=== PATIENT | female | born 1950 | race Caucasian/White ===

== ENCOUNTER 2019-07-07 10:56 | Emergency (ER) | payer OTHER, MEDICARE, SELFPAY ==
[2019-07-07] VITALS (8 sets, daily range): BP systolic 131–152; BP diastolic 75–92; PULSE 78–113; RESP 16–18; TEMP 36.6; O2SAT 98–100
--- NOTE | ~2019-07-07 | CT_ITS ---
EXAMINATION: CT brain wo con DATE: 07/07/2019 11:35 INDICATION: Fall. History of transient ischemic attack. TECHNIQUE: Computed tomography (CT) of the head was performed without intravenous contrast. The mA wa s adjusted according to patient size. Iterative reconstruction technique was employed. Exam dose: 60 5.33 mGy-cm total exam DLP. COMPARISON: None FINDINGS: There is prominent patchy diminished attenuation of the subcortical and periventricular cer ebral white matter, nonspecific, likely due to chronic small vessel ischemic change. There are bilate ral carotid siphon and supraclinoid internal carotid artery calcifications. No intracranial mass lesion or hemorrhage or evidence of cerebrovascular accident is detected. There is no midline shift or mass effect. Moderate cerebral and cerebellar volume loss. There are bilateral basal ganglia calcifications. Chronic right basal ganglia lacunar infarct. No significant abnormality of the orbits. No subdural or epidural hematoma is detected. The included paranasal sinuses and mastoid air cells are normally developed and aerated. No fracture or bone destruction of the cranial vault. IMPRESSION: Cerebral atherosclerosis and chronic small vessel ischemic changes of the cerebral white matter Reviewed, dictated and finalized at [facility]. Reviewed, dictated and finalized at [facility]. 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
--- NOTE | 2019-07-07 11:05 | ECG_ITS ---
Measurements Intervals [place] Rate: 106 P: 50 [place]: 161 QRS: 28 QRSD: 84 T: 30 QT: 322 QTc: 429 Interpretive Statements SINUS TACHYCARDIA BASELINE ARTIFACT- I, II, III, AVR, AVL, AVF, V1-V6 ABNORMAL ECG Electronically Signed On 07-07-2019 13:37:09 RECORDS SPECIALIST by Igor Mora D.O.
--- NOTE | 2019-07-07 11:09 | ED.SYNCOPE ---
HPI - Syncope General Chief Complaint: Syncope Stated Complaint: passed out twice Time Seen by Provider: 07/07/19 11:07 Source: patient Mode of arrival: ambulatory Limitations: no limitations History of Present Illness HPI narrative: A 69 y/o female presents to the ED with c/o syncope. Pt states that she was at work today and woke up on the floor twice. She notes that she was hot, lightheaded, and nauseous before the syncopal episodes. Pt denies SOB, CP, ABD pain, dysuria, and vomiting. She adds that she has constant nausea and diarrhea due to her Trulicity medication. Pt has a PMHx of syncope and diabetes. She states that she checks her blood sugar twice daily and notes that it was 125 this morning before work. Pt reports that her blood sugar has been intermittently high the last few weeks and her levels have been in the 190's. complaint: loss of consciousness Onset (ago): hour(s) (Today) Prodromal symptoms: lightheaded, nausea/vomiting and other (Hot) History: previous syncopal episode and other (Diabetes) Related Data Home Medications Medication Instructions Recorded Confirmed aspirin 81 mg PO DAILY 07/07/19 bupropion HCl 150 mg PO QAM 07/07/19 citalopram 20 mg PO DAILY 07/07/19 gabapentin 300 mg PO BID 07/07/19 levothyroxine 75 mcg PO DAILY 07/07/19 lisinopril 5 mg PO BID 07/07/19 metformin 500 mg PO BID 07/07/19 omeprazole 20 mg PO BID 07/07/19 simvastatin 40 mg PO DAILY 07/07/19 turmeric mg PO 07/07/19 Allergies Allergy/AdvReac Type Severity Reaction Status Date / Time No Known Allergies Allergy Unverified 11/13/15 21:21 Review of Systems Review of Systems: All systems reviewed & are unremarkable except as noted in HPI and below Constitutional: Constitutional: Reports other (Hot) Cardiovascular: Cardiovascular: Denies chest pain and Reports lightheadedness Respiratory: Respiratory: Denies dyspnea Gastrointestinal: Gastrointestinal: Denies abdominal pain, Reports nausea and Denies vomiting Genitourinary: Genitourinary: Denies dysuria Neurologic: Reports other (Syncope) [facility] Past Medical History Medical History (Updated 07/07/19 @ 14:03 by Kalyan Reynolds MD) Cataracts, bilateral Diabetes HTN (hypertension) Hyperlipidemia TIA (transient ischemic attack) Surgical History Surgical History (Updated 07/07/19 @ 11:39 by Yeni Argueta) History of cholecystectomy History of laminectomy History of partial hysterectomy History of uterine suspension procedure Social History Social History (Updated 07/07/19 @ 11:39 by Yeni Argueta) Smoking status: Never smoker Gender identity (if verbalized by the patient): Female Exam Const: General: healthy appearing and no acute distress Nutritional Appearance: well nourished HENMT: Mouth: Yes lip normal and Yes dry mucous membranes Eyes: Conjunctivae: conjunctivae normal Pupils: Equal, round and reactive pupils present Resp: Effort & Inspection: normal respiratory effort Auscultation: clear to auscultation bilaterally Cardio: Rate: tachycardic Rhythm: regular rhythm Heart sounds: no murmurs GI: GI Palp: Yes Soft to palpation and No Tenderness to palpation present (GI) Auscultation: normal bowel sounds Back/Spine/Pelvis: Back: other (Full ROM) Skin: General skin exam: normal color, dry skin and other (Warm) Neuro: General: patient oriented x3 (Alert) Speech: normal speech Extrem: General: full ROM Psych: Mental Status: mental status grossly normal Affect: normal affect Course Vital Signs Vital signs: Vital Signs Temperature 36.6 C 07/07/19 11:01 Pulse Rate 107 H 07/07/19 11:01 Respiratory Rate 18 07/07/19 11:01 Blood Pressure 152/92 H 07/07/19 11:01 Pulse Oximetry 100 07/07/19 11:01 Temperature 36.6 C 07/07/19 11:01 Pulse Rate 78 07/07/19 13:47 Respiratory Rate 18 07/07/19 13:47 Blood Pressure 145/81 H 07/07/19 13:47 Pulse Oximetry 100 07/07/19 13:47 MDM - Syncope
[2019-07-07] MEDS: SODIUM CHLORIDE 0.9% IV 1,000 ML 999 ML IV CONT ×2 (11:30→12:20)
--- NOTE | 2019-07-07 11:30 | PC.NURSE ---
Pt taken to CT in stretcher per tech ayala at this time.
[2019-07-07 11:41] LABS: Basophils Absolute Auto 0.1 K/mm3 (0.0-0.1); Eosinophils Absolute Auto 0.1 K/mm3 (0-0.3); Eosinophils Percent Auto 1.1 % (0-4.4); Hematocrit 41.5 % (37.0-47.0); Hemoglobin 13.3 g/dL (12.0-15.0); Immature Granulocyte Absolute 0.02 K/mm3 (0.00-0.031); Immature Granulocyte Percent A 0.2 % (0-0.5); Lymphocytes Absolute Auto 0.82 K/mm3 (0.9-3.2); Lymphocytes Percent Auto 9.2 % (18.3-44.2); Mean Corpuscular Hemoglobin 29.5 pg (26-34); Mean Platelet Volume 11.3 fl (7.4-10.4); Monocytes Absolute Auto 0.5 K/mm3 (0.1-0.6); Monocytes Percent Auto 5.6 % (2.6-8.5); Neutrophils Absolute Auto 7.4 K/mm3 (1.3-6.7); Neutrophils Percent Auto 82.9 % (45.5-73.1); Platelet Count Result 270 k/mm3 (150-375); Red Blood Count 4.51 M/mm3 (4.2-5.4); Red Cell Distribution Width 13.4 % (11.5-14.5); White Blood Count 8.9 K/mm3 (4.5-10.0)
[2019-07-07 11:50] LABS: Blood Urea Nitrogen 13 mg/dL (7-17); Calcium 9.3 mg/dL (8.4-10.2); Carbon Dioxide 24 mmol/L (22-30); Chloride 103 mmol/L (98-107); Estimated CRCL calculation 38 ml/min; Estimated Glomerular Filt Rate 44; Glucose 187 mg/dL (65-105); Magnesium 1.6 mg/dL (1.6-2.3); Potassium 4.2 mmol/L (3.4-5.0); Sodium 139 mmol/L (137-145)
--- NOTE | 2019-07-07 12:01 | PC.NURSE ---
PT REFUSES TO USE WHEELCHAIR TO GO TO BATHROOM. RN AMBULATES PT TO BATHROOM, PT UNSTEADY ON FEET.
--- NOTE | 2019-07-07 12:02 | PC.NURSE ---
PT IN BATHROOM ATTEMPTING URINE SAMPLE. PT REFUSING WHEELCHAIR, BEDPAIN, OR STRAIGHT CATH, STATES SHE WILL USE THE TOILET.
--- NOTE | 2019-07-07 12:19 | PC.NURSE ---
RN WITH PT AT THIS TIME, AMBULATES BACK TO ROOM 12, NO URINE WAS OBTAINED. PT HAS AGREED TO STRAIGHT CATH.
[2019-07-07 12:41] LABS: Add Urine Microscopic? NO; Appearance Urine Clear (Clear); Bilirubin Urine Negative (Negative); Blood Urine Negative (Negative); Color Urine Yellow (Yellow); Glucose Urine UA Negative (Negative); Ketones Urine Negative (Negative); Leukocyte Esterase Ur Negative LEU/UL (Negative); Nitrate Urine Negative (Negative); Protein Urine Negative (Negative); Specific Grav Ur 1.011 (1.001-1.035); Urobilinogen Urine Negative mg/dL (<2.0)
--- NOTE | 2019-07-07 13:53 | PC.NURSE ---
PT AMBULATED TO BATHROOM WITHOUT ASSISTANCE. PT STATED SHE DID NOT FEEL DIZZY.
--- NOTE | 2019-07-15 09:01 | PC.NURSE ---
LATE ENTRY This note is being entered to document information to the patient's record. The following information was omitted on [07/07/2019], by [ALLYSON]. BOTH BAGS OF NS COMPLETED AT 1220.
== END 2019-07-07 14:44 | disposition home or self-care (01) ==
PROVIDERS: Emergency Provider Emergency Medicine; PCP Internal Medicine
DX: R55 Syncope and collapse (principal); E11.9 Type 2 diabetes mellitus without complications; I10 Essential (primary) hypertension; E78.5 Hyperlipidemia, unspecified; Z86.73 Personal history of transient ischemic attack (TIA), and cerebral infarction without residual deficits; H26.9 Unspecified cataract; Z79.82 Long term (current) use of aspirin
CPT/HCPCS: 36415; 51701; 70450; 80048; 81003; 83735; 85025; 93005; 96360; 99284; J7030

== ENCOUNTER 2022-10-29 17:00 | Emergency (ER) | payer OTHER, MEDICARE, SELFPAY ==
--- NOTE | ~2022-10-29 | XR_ITS ---
EXAMINATION: XR chest 2V Exam Date/Time: 10/29/2022 18:15 CDT HISTORY: Dizziness, left arm numbness. Hx htn Comparison: None. RESULT: Lines, tubes, and devices: Coronary artery stents. Cholecystectomy clips. Lungs and pleura: Mild senescent changes, otherwise clear. Cardiomediastinal silhouette: Unremarkable. Other: No acute osseous or upper abdominal finding. IMPRESSION: No acute cardiopulmonary process. Reviewed, dictated and finalized at [facility].
--- NOTE | ~2022-10-29 | CT_ITS ---
EXAMINATION: CT brain wo con DATE: 10/29/2022 18:17 INDICATION: tia . TECHNIQUE: Computed tomography (CT) of the head was performed without intravenous contrast. The mA wa s adjusted according to patient size. Iterative reconstruction technique was employed. The dose-lengt h product was 605.33 mGy-cm. COMPARISON: 07/07/2019. FINDINGS: No acute intracranial hemorrhage or extra-axial fluid collection. No hydrocephalus, mass, or herniation. No acute ischemic infarct. Hypodensity in the right medial occipital lobe, not yet CSF density, with loss of the pastor-white junction, likely early chronic changes from prior infarct. Unremarkable dural venous sinus attenuation. No acute osseous abnormality. Trace right mastoid fluid, the remaining aerated spaces are clear. Moderate atrophy and severe chronic white matter change. Atherosclerotic intracranial calcification. Bilateral basal ganglia calcification and chronic right basal ganglia lacunar infarct. IMPRESSION: No acute intracranial process. Early chronic infarct in the left medial occipital lobe. Reviewed, dictated and finalized at location [facility]. IMPRESSION: No acute intracranial process. Early chronic infarct in the left medial occipit al lobe.
[2022-10-29 17:09] VITALS: BP 158/94; PULSE 107; RESP 18; TEMP 37.1; O2SAT 99
--- NOTE | 2022-10-29 17:14 | ECG_ITS ---
Measurements Intervals [place] Rate: 91 P: 56 [place]: 152 QRS: 3 QRSD: 90 T: 46 QT: 341 QTc: 421 Interpretive Statements SINUS RHYTHM BASELINE ARTIFACT- I, II, III, AVR, AVL, AVF NORMAL ECG COMPARED TO ECG 07/07/2019 11:02:58 SINUS RHYTHM NOW PRESENT Electronically Signed On 10-29-2022 17:51:30 CDT by Igor Mora D.O.
[2022-10-29 17:32] LABS: Basophils Absolute Auto 0.1 K/mm3 (0.0-0.1); Basophils Percent Auto 0.9 % (0.2-1.2); Eosinophils Absolute Auto 0.3 K/mm3 (0-0.3); Hematocrit 42.5 % (37.0-47.0); Hemoglobin 13.9 g/dL (12.0-15.0); Immature Granulocyte Absolute 0.02 K/mm3 (0.00-0.031); Immature Granulocyte Percent A 0.3 % (0-0.5); Lymphocytes Absolute Auto 1.32 K/mm3 (0.9-3.2); Lymphocytes Percent Auto 17.6 % (18.3-44.2); Mean Corpuscular HGB Conc 32.7 g/dl (32-36); Mean Corpuscular Hemoglobin 29.6 pg (26-34); Mean Corpuscular Volume 90.4 fl (80-100); Mean Platelet Volume 10.6 fl (7.4-10.4); Monocytes Absolute Auto 0.6 K/mm3 (0.1-0.6); Monocytes Percent Auto 8.1 % (2.6-8.5); Neutrophils Absolute Auto 5.2 K/mm3 (1.3-6.7); Neutrophils Percent Auto 69.1 % (45.5-73.1); Platelet Count Result 238 k/mm3 (150-375); Red Cell Distribution Width 13.7 % (11.5-14.5); White Blood Count 7.5 K/mm3 (4.5-10.0)
[2022-10-29 17:42] LABS: Alanine Aminotransferase 15 U/L (6-35); Albumin Level 4.2 g/dL (3.5-5.1); Alkaline Phosphatase 82 U/L (38-126); Anion Gap 6 mmol/L (8-16); Aspartate Amino Transferase 23 U/L (14-36); Bilirubin,Total 0.6 mg/dL (0.2-1.3); Blood Urea Nitrogen 17 mg/dL (7-17); Calcium 8.6 mg/dL (8.4-10.2); Carbon Dioxide 30 mmol/L (22-30); Chloride 104 mmol/L (98-107); Estimated Glomerular Filt Rate 54; Glucose 135 mg/dL (65-110); Potassium 3.8 mmol/L (3.4-5.0); Prothrombin Time 13.4 Seconds (11.1-14.7); Sodium 140 mmol/L (137-145)
--- NOTE | 2022-10-29 17:51 | ED.GENADULT ---
HPI - General Adult General Chief complaint: Neuro Symptoms/Deficit Stated complaint: L arm and lower mouth numbness since 11AM - hx TIA Time Seen by Provider: 10/29/22 17:19 Source: patient and family Mode of arrival: ambulatory Limitations: no limitations History of Present Illness HPI narrative: 72 years old white female presented to the ED with numbness and tingling around her mouth of the upper and lower lips bilaterally with numbness of the left hand and wrist started this morning while sitting watching TV .history of diabetes, hypertension, hyperlipidemia, vertigo, hypothyroidism, coronary stents and 9 TIAs. Patient's symptoms resolved except the numbness and tingling around the mouth. When I asked the patient about any stress:, Patient broke up in tears for few minutes. She reports tons of stress lately, lives alone with her pets. She denies any fever, chills, nausea, vomiting, chest pain or shortness of breath. Patient had similar symptoms 2 weeks ago, went to [facility] with insignificant work-up Related Data Home Medications Medication Instructions Recorded Confirmed aspirin 81 mg chewable tablet 81 mg PO DAILY 07/07/19 bupropion HCl 150 mg 24 hr tablet, 150 mg PO QAM 07/07/19 extended release citalopram 20 mg tablet 20 mg PO DAILY 07/07/19 gabapentin 300 mg capsule 300 mg PO BID 07/07/19 levothyroxine 75 mcg capsule 75 mcg PO DAILY 07/07/19 lisinopril 5 mg tablet 5 mg PO BID 07/07/19 metformin 500 mg tablet 500 mg PO BID 07/07/19 omeprazole 20 mg capsule,delayed 20 mg PO BID 07/07/19 release simvastatin 40 mg tablet 40 mg PO DAILY 07/07/19 turmeric 400 mg capsule mg PO 07/07/19 Allergies Allergy/AdvReac Type Severity Reaction Status Date / Time loratadine Allergy Nausea and Verified 10/29/22 17:02 Vomiting Review of Systems Review of Systems: All systems reviewed & are unremarkable except as noted in HPI and below PMFSH Past Medical History Medical History Cataracts, bilateral Diabetes HTN (hypertension) Hyperlipidemia TIA (transient ischemic attack) Surgical History Surgical History History of cholecystectomy History of laminectomy History of partial hysterectomy History of uterine suspension procedure Social History Social History Smoking status: Never smoker Gender identity (if verbalized by the patient): Female Exam Narrative: General appearance: Well-developed, well-nourished Skin: Normal color Head: Normocephalic, nontraumatic Eyes: Clear conjunctiva ENT: Oropharynx normal, ears normal, nose normal Neck: Supple, nontender Chest and respiratory: Airway patent, no respiratory distress, no accessory muscle use Heart: Regular rate/rhythm Abdomen: Soft, nontender, no organomegaly, quiet bowel sounds Vascular: Normal peripheral pulses, normal capillary refill. 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
--- NOTE | 2022-10-29 18:06 | PC.NURSE ---
patient c/o numbness to lower lip when waking around 1100. states that she had this prior and it went away and then came back today.
[2022-10-29] MEDS: LORazepam (*CRX) 0.5 MG TABLET 1 MG PO (18:25)
[2022-10-29 18:32] LABS: Erythrocyte Sedimentation Rate 23 mm/hr (0-20)
[2022-10-29 18:54] VITALS: BP 172/98; PULSE 86; RESP 18; O2SAT 100
== END 2022-10-29 18:56 | disposition home or self-care (01) ==
PROVIDERS: Emergency Provider Emergency Medicine; PCP Internal Medicine
DX: R20.2 Paresthesia of skin (principal); E03.9 Hypothyroidism, unspecified; E11.9 Type 2 diabetes mellitus without complications; E78.5 Hyperlipidemia, unspecified; I10 Essential (primary) hypertension; H26.9 Unspecified cataract; Z95.5 Presence of coronary angioplasty implant and graft; Z86.73 Personal history of transient ischemic attack (TIA), and cerebral infarction without residual deficits; Z90.49 Acquired absence of other specified parts of digestive tract; Z90.711 Acquired absence of uterus with remaining cervical stump; Z79.82 Long term (current) use of aspirin; Z79.84 Long term (current) use of oral hypoglycemic drugs
CPT/HCPCS: 36415; 70450; 71046; 80053; 84443; 85025; 85610; 85652; 93005; 99284; A9270

== ENCOUNTER 2022-10-30 18:09 | Inpatient (IN) | payer OTHER, SELFPAY ==
[2022-10-30] VITALS (14 sets, daily range): BP systolic 141–164; BP diastolic 79–95; PULSE 79–95; RESP 13–20; TEMP 36.7; O2SAT 95–100
--- NOTE | ~2022-10-30 | CT_ITS ---
EXAMINATION: CTA brain carotid DATE: 10/30/2022 23:55 INDICATION: Left-sided numbness. TECHNIQUE: Computed tomographic angiography (CTA) of the head was performed without and with 100 mL O mnipaque-350 intravenous contrast. CTA of the neck was performed with intravenous contrast. Automated exposure control and iterative reconstruction technique were employed. The dose-length product was 1 847.75 mGy-cm. Maximum intensity projection and volume rendered 3D-reconstructions were created by th e technologist on a separate workstation. COMPARISON: Head CT 10/29/2022, 07/07/19 FINDINGS: HEAD CTA: There are scattered areas of low attenuation in the cerebral white matter and nanci. There i s an infarct in right occipital lobe. There is no intracranial hemorrhage or abnormal mass lesion. Th e ventricles are normal in size. There is mild mucosal thickening in the paranasal sinuses. The masto id air cells are normal. There are likely changes of ocular lens replacement surgeries. The vertebral arteries are codominant. There is no significant stenosis of basilar artery. There is moderate steno sis of right P2 posterior cerebral artery. The posterior communicating arteries are normal. There is no significant stenosis of the intracranial internal carotid arteries or anterior cerebral arteries. Anterior communicating artery is normal. There is moderate stenosis of right M2 middle cerebral arter y. There is no aneurysm. NECK CTA: There are no pathologically enlarged lymph nodes. There is a 4 mm nodule in left thyroid lo be, likely not clinically significant. There is no significant stenosis of the vertebral arteries. Th ere is plaque in the proximal internal carotid arteries. There is 0% stenosis of the proximal right i nternal carotid artery relative to normal distal artery lumen diameter (NASCET criteria). There is 0% stenosis of the proximal left internal carotid artery relative to normal distal artery lumen diamete r. There is severe cervical spondylosis. There is anterior fusion from C4 to C7. IMPRESSION: 1. Infarct in right occipital lobe, likely acute or subacute. 2. Extensive nonspecific cerebral white matter disease and pontine disease, which likely represents c hronic small vessel ischemic disease. 3. Moderate stenosis of right M2 middle cerebral artery and right P2 posterior cerebral artery. 4. 0% stenosis of the proximal internal carotid arteries relative to normal distal artery lumen diame ters (NASCET criteria). Reviewed, dictated and finalized at location [facility]. IMPRESSION: 1. Infarct in right occipital lobe, likely acute or subacute. 2. Extensive nonspecific cerebral white matter disease and pontine disease, whi ch likely represents chronic small vessel ischemic disease. 3. Moderate stenosis of right M2 middle cerebral artery and right P2 posterior cerebral artery. 4. 0% stenosis of the proximal internal carotid arteries relative to normal dis aparna artery lumen diameters (NASCET criteria).
--- NOTE | ~2022-10-30 | MR_ITS ---
EXAMINATION: MR brain/brain stem wo con DATE: 10/31/2022 08:32 INDICATION: Stroke. Syncope. TECHNIQUE: Magnetic resonance imaging (MRI) of the brain and brainstem was performed without intraven ous contrast. COMPARISON: Head CT 10/30/2022 FINDINGS: There is an acute infarct in the right occipital lobe. There is an old infarct in the left temporal parietal region. There are scattered areas of nonspecific increased T2-weighted signal inten sity in the cerebral white matter and nanci. There is no intracranial hemorrhage or abnormal mass lesi on. The ventricles are normal in size. There are likely changes of ocular lens replacement surgeries. There is mild mucosal thickening in the ethmoid sinuses. There are small bilateral mastoid effusions . IMPRESSION: 1. Acute infarct in the right occipital lobe. 2. Old infarct in the left temporal parietal region. 3. Extensive nonspecific cerebral white matter disease and pontine disease, which likely represents c hronic small vessel ischemic disease. Reviewed, dictated and finalized at location [facility]. IMPRESSION: 1. Acute infarct in the right occipital lobe. 2. Old infarct in the left temporal parietal region. 3. Extensive nonspecific cerebral white matter disease and pontine disease, whi ch likely represents chronic small vessel ischemic disease.
--- NOTE | ~2022-10-30 | XR_ITS ---
EXAMINATION: XR chest 1V portable Exam Date/Time: 10/30/2022 20:05 CDT HISTORY: weakness AND FACIAL NUMBNESS Comparison: 10/29/2022. RESULT: Lines, tubes, and devices: Coronary artery stents. Lungs and pleura: No focal consolidation, pneumothorax, or large effusion. Senescent changes. Minima l streaky right basilar atelectasis/scar. Cardiomediastinal silhouette: Stable. Other: No acute osseous or upper abdominal finding. IMPRESSION: No acute cardiopulmonary process. Reviewed, dictated and finalized at location [facility].
--- NOTE | ~2022-10-30 | CT_ITS ---
EXAMINATION: CT brain wo con DATE: 11/01/2022 18:33 INDICATION: syncope . TECHNIQUE: Computed tomography (CT) of the head was performed without intravenous contrast. The mA wa s adjusted according to patient size. Iterative reconstruction technique was employed. The dose-lengt h product was 605.33 mGy-cm. COMPARISON: 10/29/2022. FINDINGS: No acute intracranial hemorrhage or extra-axial fluid collection. No hydrocephalus, mass, or herniation. No acute ischemic infarct. Unremarkable dural venous sinus attenuation. No acute osseous abnormality. Small right mastoid fluid, the remaining aerated spaces are clear. Moderate atrophy and severe chronic white matter change. Early chronic infarct changes in the right m edial occipital lobe. Chronic right basal ganglia and right thalamic lacunar infarcts. Chronic focal infarct in the nanci. Atherosclerotic intracranial calcification. Bilateral basal ganglia calcificatio n Bilateral lens replacements. IMPRESSION: No acute intracranial process. Reviewed, dictated and finalized at location [facility].
--- NOTE | ~2022-10-30 | XR_ITS ---
EXAM: XR elbow LT min 3V DATE: 10/30/2022 20:13 HISTORY: pain . COMPARISON: None available. FINDINGS: Decreased mineralization. No fracture or dislocation. No lytic or blastic lesion. Mild deg enerative change at the elbow joint. Lateral epicondylar enthesopathy. No erosion or periosteal alberto e. Soft tissues within normal limits. No joint effusion. IMPRESSION: No acute osseous finding in the left elbow. Reviewed, dictated and finalized at location [facility].
--- NOTE | ~2022-10-30 | US_ITS ---
EXAMINATION: US carotid duplex BI DATE: 10/31/2022 08:52 INDICATION: Syncope. TECHNIQUE: Grayscale, color Doppler, and pulsed Doppler images of the cervical carotid arteries were obtained. The degree of vessel stenosis is placed in one of the following categories: normal, <50%, 5 0-69%, >=70% but less than near-occlusion, near-occlusion, or total occlusion. Note that percent sten osis relative to normal distal artery lumen diameter is indirectly measured from velocity measurement s as described by Kalyan, et al. Radiology 2003; 229:340-346. COMPARISON: CTA 10/30/2022 FINDINGS: RIGHT: The right common carotid artery (CCA) peak systolic velocity (PSV) is 67 cm/s. The right internal car otid artery (ICA) PSV is 59 cm/s. The right ICA end-diastolic velocity (EDV) is 21 cm/s. The right IC A/CCA PSV ratio is 0.9. Grayscale and color Doppler images yield an estimate of <50% diameter reducti on from plaque in the ICA. There is antegrade flow in the right vertebral artery. LEFT: The left CCA PSV is 60 cm/s. The left ICA PSV is 49 cm/s. The left ICA EDV is 15 cm/s. The left ICA/C CA PSV ratio is 0.8. Grayscale and color Doppler images yield an estimate of <50% diameter reduction from plaque in the ICA. There is antegrade flow in the left vertebral artery. IMPRESSION: 1. <50% stenosis in the right internal carotid artery. 2. <50% stenosis in the left internal carotid artery. Reviewed, dictated and finalized at location A.
--- NOTE | ~2022-10-30 | MR_ITS ---
EXAMINATION: MRA brain wo con DATE: 10/31/2022 08:32 INDICATION: Syncope. Stroke. TECHNIQUE: Magnetic resonance angiography (MRA) of the brain was performed without intravenous contra st with T1-weighted SPGR by the 3D [id number] technique. Maximum intensity projection 3D-reconstr uctions were obtained. COMPARISON: Head CT 10/30/2022 FINDINGS: The vertebral arteries are codominant. There is no significant stenosis of basilar artery. There is m oderate stenosis of right P2 posterior cerebral artery. The posterior communicating arteries are norm al. There is no significant stenosis of the intracranial internal carotid arteries or anterior cerebr al arteries. Anterior communicating artery is normal. There is moderate stenosis of right M2 middle c erebral artery. There is no aneurysm. IMPRESSION: 1. Moderate stenosis of right M2 middle cerebral artery and right P2 posterior cerebral artery. Reviewed, dictated and finalized at location A.
[2022-10-30 21:55] LABS: Basophils Absolute Auto 0.1 K/mm3 (0.0-0.1); Basophils Percent Auto 0.8 % (0.2-1.2); Eosinophils Absolute Auto 0.2 K/mm3 (0-0.3); Eosinophils Percent Auto 2.1 % (0-4.4); Hematocrit 44.1 % (37.0-47.0); Hemoglobin 14.4 g/dL (12.0-15.0); Immature Granulocyte Absolute 0.05 K/mm3 (0.00-0.031); Immature Granulocyte Percent A 0.5 % (0-0.5); Lymphocytes Percent Auto 12.4 % (18.3-44.2); Mean Corpuscular HGB Conc 32.7 g/dl (32-36); Mean Corpuscular Hemoglobin 29.6 pg (26-34); Mean Corpuscular Volume 90.6 fl (80-100); Mean Platelet Volume 10.8 fl (7.4-10.4); Monocytes Absolute Auto 0.8 K/mm3 (0.1-0.6); Monocytes Percent Auto 7.4 % (2.6-8.5); Neutrophils Percent Auto 76.8 % (45.5-73.1); Platelet Count Result 260 k/mm3 (150-375); Red Blood Count 4.87 M/mm3 (4.2-5.4); Red Cell Distribution Width 13.9 % (11.5-14.5); White Blood Count 10.5 K/mm3 (4.5-10.0)
[2022-10-30 22:06] LABS: Lactic Acid Reflex 1.3 mmol/L (0.7-2.0)
[2022-10-30 22:24] LABS: Procalcitonin 0.1 ng/mL
[2022-10-30 22:44] LABS: INR 1.1; Prothrombin Time 14.2 Seconds (11.1-14.7)
[2022-10-30 22:45] LABS: Partial Thromboplastin Time 24.5 SECONDS (22.3-36.8)
--- NOTE | 2022-10-30 22:52 | ED.GENADULT ---
HPI - General Adult General Chief complaint: Anxiety Stated complaint: anxiety Time Seen by Provider: 10/30/22 19:38 History of Present Illness HPI narrative: Patient 72-year-old female who presents the emergency department with chief complaint of anxiety and fall. Patient reports that several days ago she was seen at [facility] and told that she had had a TIA the patient is already on Brilinta and on baby aspirin patient states that she had an MRI at that time and reports that ultimately she was discharged. The patient states that she was seen in the emergency department yesterday after she had an episode where she became extremely anxious and had tingling more on her left side of her body and her left oral area. Patient states that she went home was doing okay and then was walking up the steps and had a ground-level fall the patient believes she may have passed out because she does not remember the actual fall. The patient reports pain in her left elbow and reports that she feels weak and rundown. Related Data Home Medications Medication Instructions Recorded Confirmed aspirin 81 mg chewable tablet 81 mg PO DAILY 07/07/19 bupropion HCl 150 mg 24 hr tablet, 150 mg PO QAM 07/07/19 extended release citalopram 20 mg tablet 20 mg PO DAILY 07/07/19 gabapentin 300 mg capsule 300 mg PO BID 07/07/19 levothyroxine 75 mcg capsule 75 mcg PO DAILY 07/07/19 lisinopril 5 mg tablet 5 mg PO BID 07/07/19 metformin 500 mg tablet 500 mg PO BID 07/07/19 omeprazole 20 mg capsule,delayed 20 mg PO BID 07/07/19 release simvastatin 40 mg tablet 40 mg PO DAILY 07/07/19 turmeric 400 mg capsule mg PO 07/07/19 Allergies Allergy/AdvReac Type Severity Reaction Status Date / Time loratadine Allergy Nausea and Verified 10/29/22 17:02 Vomiting Review of Systems Review of Systems: A 10 system review of systems was completed on the patient and is negative except for what is stated in the HPI. Nursing and ancillary documentation was reviewed. [facility] Past Medical History Medical History Cataracts, bilateral Diabetes HTN (hypertension) Hyperlipidemia TIA (transient ischemic attack) Surgical History Surgical History History of cholecystectomy History of laminectomy History of partial hysterectomy History of uterine suspension procedure Social History Social History Smoking status: Never smoker Gender identity (if verbalized by the patient): Female Exam Narrative: GENERAL: Well-appearing, well-nourished, and in no acute distress. HEAD: Normocephalic, atraumatic. EYES: PERRLA and EOMI. ENT: Nares clear, no rhinorrhea or epistaxis. Mucous membranes moist. NECK: Supple. CHEST: Clear to auscultation. No respiratory distress. HEART: Regular rate and rhythm. No murmur heard. Normal peripheral pulses. ABDOMEN: Soft, nontender, nondistended, normal active bowel sounds. EXTREMITIES: Normal range of motion. No edema. SKIN: Warm, dry, no rash. NEURO: No focal deficits. Alert and oriented x3. PSYCH: Normal mood and affect. Course Vital Signs Vital signs: Vital Signs Temperature 36.7 C 10/30/22 18:15 Pulse Rate 95 10/30/22 18:15 Respiratory Rate 17 10/30/22 18:15 Blood Pressure 164/95 H 10/30/22 18:15 Pulse Oximetry 95 10/30/22 18:15 Oxygen Delivery Room Air 10/30/22 18:15 Temperature 36.7 C 10/30/22 18:15 Pulse Rate 84 10/30/22 23:23 Respiratory Rate 20 10/30/22 23:23 Blood Pressure 141/82 H 10/30/22 22:15 Pulse Oximetry 100 10/30/22 23:23 Oxygen Delivery Room Air 10/30/22 18:15 Medical Decision Making [facility] Narrative Medical decision making narrative: Differential diagnosis includes CVA TIA syncope Laboratory studies were obtained and the patient showed a CBC with a white
[2022-10-30 23:18] LABS: Alanine Aminotransferase 16 U/L (6-35); Alkaline Phosphatase 67 U/L (38-126); Anion Gap 6 mmol/L (8-16); Aspartate Amino Transferase 29 U/L (14-36); Bilirubin,Total 1.1 mg/dL (0.2-1.3); Blood Urea Nitrogen 20 mg/dL (7-17); Calcium 8.5 mg/dL (8.4-10.2); Carbon Dioxide 30 mmol/L (22-30); Chloride 103 mmol/L (98-107); Estimated CRCL calculation 43 ml/min; Estimated Glomerular Filt Rate 54; Glucose 126 mg/dL (65-110); Magnesium 2.1 mg/dL (1.6-2.3); Potassium 4.1 mmol/L (3.4-5.0); Sodium 139 mmol/L (137-145); Troponin I < 0.012 ng/mL (0.000-0.034)
[2022-10-31] VITALS (20 sets, daily range): BP systolic 114–153; BP diastolic 61–85; PULSE 69–97; RESP 14–20; TEMP 36.1–36.8; O2SAT 89–100; BMI 23.1
--- NOTE | 2022-10-31 | ECHO_ITS ---
Patient Info Name: Maile Tobar Age: 72 years : 1950 Gender: Female Ht: 68 in Wt: 152 lbs BSA: 1.82 m2 HR: 87 bpm BP: 153 / 76 mmHg Heart Rhythm: Sinus Rhythm Technical Quality: Fair Exam Date: 10/31/2022 11:21 AM [facility]: [facility] Patient Status: Outpatient Admit Date: 10/31/2022 Staff Ordering Physician: Padilla Willoughby MD Electrical Test Engineer: Kristine Beltran RDCS Attending Provider: Padilla Willoughby MD Referring Physician: Case MONTGOMERY; Exam Type: CA echo doppler color flow Study Info Indications - syncope Complete two-dimensional, color flow and Doppler transthoracic echocardiogram is performed. Summary 1. Complete two-dimensional, color flow and Doppler transthoracic echocardiogram is performed. 2. Left ventricular chamber dimension is normal. 3. Left ventricular systolic function is normal, estimated at 60-65%. 4. There is mildly increased left ventricular wall thickness. 5. The left ventricular diastolic function is grade I diastolic dysfunction. 6. There is trace mitral valve regurgitation. 7. There is no aortic valve stenosis. Left Ventricle Left ventricular chamber dimension is normal. Left ventricular systolic function is normal, estimated at 60-65%. There is mildly increased left ventricular wall thickness. The left ventricular diastolic function is grade I diastolic dysfunction. Right Ventricle Right ventricular chamber dimension is normal. Right ventricular systolic function is normal. Left Atria Left atrial chamber dimension is normal. Right Atria Right atrial chamber dimension is normal. Aortic Valve The aortic valve is not well visualized. There is no aortic valve stenosis. There is no aortic valve regurgitation. Pulmonic Valve The pulmonic valve is not well visualized. Mitral Valve The mitral valve has thickened leaflets. There is trace mitral valve regurgitation. The mitral valve annulus is mildly calcified. Tricuspid Valve The tricuspid valve leaflets are normal. There is trace tricuspid valve regurgitation. No pulmonary hypertension, estimated pulmonary arterial systolic pressure is 27 mmHg. Pericardium/Pleural The pericardium appears epicardial fat pad. There is small pericardial effusion. Inferior Vena Cava Normal inferior vena cava with >50% collapse upon inspiration consistent with normal right atrial pressure, 5 mmHg. Aorta The aortic root size at the sinus of Valsalva is normal. There is mild aortic atherosclerosis. Left Ventricular Outflow Tract Name Value Normal LVOT 2D LVOT Diameter 2.0 cm LVOT Doppler LVOT Peak Gradient 3 mmHg LVOT Mean Gradient 2 mmHg LVOT VTI 17 cm LVOT VTI/AV VTI Ratio 0.8 LVOT Stroke Volume 53 ml LVOT CO 13.2 l/min LVOT CI 7.2 l/min/m2 Pulmonic Valve Name Value Normal
[2022-10-31 00:45] LABS: Appearance Urine Clear (Clear); Bilirubin Urine Negative (Negative); Blood Urine Negative (Negative); Color Urine Yellow (Yellow); Glucose Urine UA Negative (Negative); Ketones Urine Trace mg/dL (Negative); Leukocyte Esterase Ur Negative LEU/UL (Negative); Nitrate Urine Negative (Negative); Protein Urine Negative (Negative); Urobilinogen Urine 0.2 mg/dL (<2.0); pH Urine 6.5 (5.0-9.0)
[2022-10-31 00:52] LABS: Specific Grav Ur 1.039 (1.001-1.035)
[2022-10-31 00:53] LABS: Add Urine Microscopic? NO
[2022-10-31 01:05] LABS: Troponin I < 0.012 ng/mL (0.000-0.034)
--- NOTE | 2022-10-31 04:08 | PM.IMHP ---
H&P: HPI History of Present Illness Date/Time: 10/31/22 04:08 Chief Complaint: syncope Narrative: This is a 72-year-old female WITH PAST MEDICAL HISTORY SIGNIFICANT FOR HYPERTENSION, TYPE DIABETES MELLITUS. PATIENT WAS BROUGHT FOR EVALUATION TO THE EMERGENCY ROOM AFTER HAVING SEVERAL SYNCOPAL EPISODES. patient is unable to give much history she has a really not contributing with meaningful history denies any nausea, vomiting, chest pain, palpitations, shortness of breath, fevers, chills. Patient again had a syncopal episode today which is unclear whether not patient is having loss of consciousness however according to sister patient has been depressed not eating or drinking well or taking care of herself noted her to be weak, and not taking her medications at times and at times take them to close together. preliminary workup has been essentially nonrevealing. Patient is been placed in observation for further evaluation management and treatment. Review of Systems Review of Systems: patient unable to provide any meaningful history most of the history has been obtained from sister who is at bedside ROS unobtainable: Yes other ( patient cries and can not really provide any history) [facility] Past Medical History Medical History (Updated 10/31/22 @ 04:56 by Padilla Willoughby MD) Cataracts, bilateral Diabetes HTN (hypertension) Hyperlipidemia TIA (transient ischemic attack) Surgical History Surgical History History of cholecystectomy History of laminectomy History of partial hysterectomy History of uterine suspension procedure Social History Social History Smoking status: Never smoker Gender identity (if verbalized by the patient): Female Meds Home Medications and Allergies Home Medications Medication Instructions Recorded Confirmed Type aspirin 81 mg chewable tablet 81 mg PO DAILY 07/07/19 History bupropion HCl 150 mg 24 hr tablet, 150 mg PO QAM 07/07/19 History extended release citalopram 20 mg tablet 20 mg PO DAILY 07/07/19 History gabapentin 300 mg capsule 300 mg PO BID 07/07/19 History levothyroxine 75 mcg capsule 75 mcg PO DAILY 07/07/19 History lisinopril 5 mg tablet 5 mg PO BID 07/07/19 History metformin 500 mg tablet 500 mg PO BID 07/07/19 History omeprazole 20 mg capsule,delayed 20 mg PO BID 07/07/19 History release simvastatin 40 mg tablet 40 mg PO DAILY 07/07/19 History turmeric 400 mg capsule mg PO 07/07/19 History Allergies Allergy/AdvReac Type Severity Reaction Status Date / Time loratadine Allergy Nausea and Verified 10/29/22 17:02 Vomiting Vital Signs Vital Signs - 24 hr 10/30/22 18:15 10/30/22 19:26 10/30/22 19:32 Temperature 98.1 F Pulse Rate 95 83 83 Respiratory Rate 17 13 16 Blood Pressure 164/95 H 153/79 H 147/85 H Pulse Oximetry 95 100 100 Oxygen Delivery Room Air 10/30/22 19:46 10/30/22 21:00 10/30/22 21:15 Temperature Pulse Rate 83 79 80 Respiratory Rate 16 15 17 Blood Pressure 149/91 H Pulse Oximetry 100 100 100 Oxygen Delivery 10/30/22 21:30 10/30/22 21:49 10/30/22 22:00 Temperature Pulse Rate 83 81 85 Respiratory Rate 15 17 14 Blood Pressure Pulse Oximetry 99 99 Oxygen Delivery 10/30/22 22:01 10/30/22 22:15 10/30/22 22:16 Temperature Pulse Rate 82 81 82 Respiratory Rate 14 20 20 Blood Pressure 147/86 H 141/82 H Pulse Oximetry 99 100 100 Oxygen Delivery 10/30/22 22:43 10/30/22 23:23 10/31/22 02:01 Temperature Pulse Rate 80 84 75 Respiratory Rate 14 20 14 Blood Pressure 129/82 Pulse Oximetry 98 100 100 Oxygen Delivery 10/31/22 02:15 10/31/22 02:30 10/31/22 02:45 Temperature Pulse Rate 78 79 83 Respiratory Rate 20 15 19 Blood Pressure 143/83 H 139/82 148/85 H Pulse Oximetry 98 98 89 L Oxygen Delivery 10/31/22 03:00 10/31/22 03:15 0
--- NOTE | 2022-10-31 05:06 | PC.NURSE ---
Medication verified per external medication and call placed to family to verify waiting for return call.
--- NOTE | 2022-10-31 07:20 | PC.NURSE ---
Spoke to sister who has a old medication list but that patient only takes medications as she wants to take them not as ordered.
--- NOTE | 2022-10-31 07:29 | PM.IMPN ---
Progress Note: A&P Assessment and Plan (1) Stroke: Code(s): I63.9 - Cerebral infarction, unspecified Status: Acute Assessment and Plan: acute versus subacute. Patient was reported at [facility] recently (?10/21/22) CT head 10/29 and CTA head and neck with acute versus subacute right occipital lobe. Moderate stenosis right M2 middle cerebral artery and right P2 posterior cerebral artery. Neurology consulted Brain MRI pending Echocardiogram with bubble study pending Carotid US pending check lipid panel, A1c, B12 and folate TSH elevated 6.44 on 10/29 and she was instructed to increase levothyroxine 125 mcg daily Continue Aspirin 81 mg daily, Plavix 75 mg daily. Resume statin when medications verified and adjust per lipid panel if it has not been increased recently. BP control. Will give permissive hypertension for 24 hours, especially in light of syncope complaint PT/OT evaluation (2) Syncope: Qualifiers: Syncope type: unspecified Qualified Code(s): R55 - Syncope and collapse Code(s): R55 - Syncope and collapse Status: Acute Assessment and Plan: according to sister patient has been passing out cannot really obtain a clear history Monitor telemetry MRI brain shows acute infarct to right occipital lobe, old infarct to left temporal/parietal region, and extensive nonspecific white matter disease. echocardiogram pending. PT OT consult neurology consulted and appreciate recommendations. Monitor orthostatic vitals. 30 day event monitor at discharge. 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: with intermodal owner operator truck driver use Diabetes mellitus complication status: with circulatory complication Diabetes mellitus complication detail: with other circulatory complications Qualified Code(s): E11.59 - Type 2 diabetes mellitus with other circulatory complications; Z79.4 - MCC (current) use of insulin Code(s): E11.9 - Type 2 diabetes mellitus without complications Status: Chronic Assessment and Plan: Accu-Cheks AC and HS will hold metformin insulin sliding scale as needed continue basal-bolus insulin A1c 6.9% (4) HTN (hypertension): Qualifiers: Hypertension type: primary hypertension Qualified Code(s): I10 - Essential (primary) hypertension Code(s): I10 - Essential (primary) hypertension Status: Acute Assessment and Plan: continue losartan and metoprolol at home doses. continue to monitor (5) Generalized muscle weakness: Code(s): M62.81 - Muscle weakness (generalized) Status: Acute Assessment and Plan: PT OT consult likely secondary to deconditioning patient is mainly homebound (6) Depression: Qualifiers: Depression Type: major depressive disorder Major depression recurrence: unspecified whether recurrent Active/Remission status: currently active Major depression episode severity: unspecified Qualified Code(s): F32.9 - Major depressive disorder, single episode, unspecified Code(s): F32.A - Depression, unspecified Status: Acute Assessment and Plan: Increasingly tearful, hypersomnia, patient stopped taking all her medications due to depression. She reports seeing multiple counselors in the past and is not interested in it. She denies suicidal plan or intent. continue lexapro at home dose. She does not appear to have been taking this. Replace B12. consider adding additional agent but will monitor mood for now. Plan CODE STATUS: FULL CODE Discharge disposition: from home. PT/OT evaluation pending. Time Spent With Patient Time with patient: 25 - 35 minutes Subjective Date/time seen: 10/31/22 07:29 Interval history: Patient reports she just doesn't feel right. She states that she just wants to feel better. She is tearful and reports hypersomnia. She states she sto
[2022-10-31 07:49] LABS: Anion Gap 7 mmol/L (8-16); Blood Urea Nitrogen 19 mg/dL (7-17); Calcium 8.6 mg/dL (8.4-10.2); Carbon Dioxide 29 mmol/L (22-30); Chloride 102 mmol/L (98-107); Cholesterol 229 mg/dL (0-200); Estimated CRCL calculation 45 ml/min; Estimated Glomerular Filt Rate 54; Glucose 119 mg/dL (65-110); HDL Direct 41 mg/dL; Potassium 3.8 mmol/L (3.4-5.0); Sodium 138 mmol/L (137-145); Triglycerides 92 mg/dL (<150)
[2022-10-31 07:52] LABS: Hemoglobin A1C 6.9 % (<5.7)
[2022-10-31 07:59] LABS: LDL Cholesterol Direct 153 mg/dL
[2022-10-31 08:55] LABS: Folic Acid 12.6 ng/mL (2.76->20)
[2022-10-31 09:00] LABS: Glucose Point of Care 150 mg/dl (65-105)
[2022-10-31 09:51] LABS: Vitamin D 25 Hydroxy < 12.8 ng/mL
[2022-10-31] MEDS: CLOPIDOGREL BISULFATE 75 MG TABLET PO (10:17)
[2022-10-31] MEDS: ASPIRIN 81 MG ENTERIC TABLET PO (10:17)
--- NOTE | 2022-10-31 10:24 | WPDNEURCNPN ---
Assessment and Plan Assessment and plan (1) Stroke: Code(s): I63.9 - Cerebral infarction, unspecified Status: Acute (2) HTN (hypertension): Code(s): I10 - Essential (primary) hypertension Status: Acute (3) Diabetes: Code(s): E11.9 - Type 2 diabetes mellitus without complications Status: Chronic (4) Syncope: Qualifiers: Syncope type: unspecified Qualified Code(s): R55 - Syncope and collapse Code(s): R55 - Syncope and collapse Status: Acute Plan Maile Tobar is a 72 year old female with a history of diabetes, hypertension, hyperlipidemia presenting due to syncope. She was found to have acute R occipital infarct, likely secondary to large vessel disease (P2 stenosis). - Switch statin to Lipitor 80mg daily, goal LDL <70 - Continue Aspirin and Plavix x 3 months, then Aspirin monotherapy - Ok to discharge Consult date: 11/01/22 Reason for consult: Syncope, stroke HPI: Maile Tobar is a 72 year old female with a history of diabetes, hypertension, hyperlipidemia presenting due to syncope. Patient was initially see at [facility] a few days ago and was told that she had a TIA. She presented again to the Emergency room on 10/11o due to perioral numbness and tingling on the left side of the body. She was also very anxious at the time, so she received a dose of Ativan, which sememed to help her symptoms. She was discharged and was initially doing okay, but she did have an episode of loss of consciousness. Patient does not have any recollection of the fall itself. When she presented to the ED her CT head showed acute vs subacute infarct int the right occipital lobe. CTA brain/carotid showed moderate stenosis of the right M2 and right P2 segment. She is currently on Aspirin and Plavix. She takes Simvastatin 40mg daily. LDL from this admission is 153 and A1c is 6.9. EKG on presentation showed sinus rhythm. Blood pressure has been in the 140-160s. Patient reports feeling well. She has some tingling in her right upper extremity but no symptoms in the left side. She has blurry vision but she does not have her prescription glasses with her. Surface echocardiogram was done and unremarkable. Review of Systems Constitutional: Constitutional: Denies chills, Denies fever(s) and Denies weight loss Eyes: Eyes: Denies diplopia and Denies loss of vision ENT: Denies dizziness, Denies hearing loss and Denies tinnitus Cardiovascular: Cardiovascular: Denies chest pain, Denies syncope and Denies dyspnea Respiratory: Respiratory: Denies cough, Denies dyspnea and Denies wheezing Gastrointestinal: Gastrointestinal: Denies abdominal pain, Denies change in bowel habits and Denies vomiting Genitourinary: Genitourinary: Denies urinary incontinence Musculoskeletal: Musculoskeletal: Reports arthralgias and Denies joint swelling Integumentary/Breasts: Skin/Breast: Denies new lesions and Denies rash Neurologic: Reports as per HPI, Denies dizziness, Denies syncope and Denies loss of vision Psychiatric: Psychiatric: Denies anxiety and Denies depression Endocrine: Endocrine: Denies cold intolerance and Denies heat intolerance Hematologic/Lymphatic: Hematologic/Lymphatic: Denies easy bleeding and Denies easy bruising Allergic/Immunologic: Allergic/Immunologic: Denies no additional allergic/immunologic complaints and Denies wheezing PMFSH Past Medical History Medical History Cataracts, bilateral Diabetes HTN (hypertension) Hyperlipidemia TIA (transient ischemic attack) Surgical History Surgical History History of cholecystectomy History of laminectomy History of partial hysterectomy History of uterine suspension procedure Social History Social History Smoking status: Never smoker Alcohol intake: never Substance use:
[2022-10-31] MEDS: CHOLECALCIFEROL 1,000 UNITS TABLET 2000 UNITS PO (10:45)
[2022-10-31] MEDS: ATORVASTATIN 40 MG TABLET 80 MG PO (10:45)
[2022-10-31] MEDS: CYANOCOBALAMIN 1,000 MCG TABLET 1000 MCG PO (10:46)
[2022-10-31 12:19] LABS: Glucose Point of Care 201 mg/dl (65-105)
[2022-10-31] MEDS: INSULIN ASPART (*BKC) 100 UNITS/ML SUB-Q (13:18)
[2022-10-31 17:03] LABS: Glucose Point of Care 122 mg/dl (65-105)
[2022-10-31] MEDS: GABAPENTIN 300 MG CAPSULE PO (18:02)
[2022-10-31 20:33] LABS: Glucose Point of Care 153 mg/dl (65-105)
[2022-10-31] MEDS: INSULIN GLARGINE (*BKC) 100 UNITS/ML 28 UNITS SUB-Q (20:33)
[2022-11-01] VITALS (12 sets, daily range): BP systolic 92–126; BP diastolic 44–67; PULSE 70–93; RESP 14–20; TEMP 35.7–36.8; O2SAT 94–100
[2022-11-01 05:39] LABS: Hematocrit 42.5 % (37.0-47.0); Hemoglobin 13.8 g/dL (12.0-15.0); Mean Corpuscular HGB Conc 32.5 g/dl (32-36); Mean Corpuscular Hemoglobin 29.7 pg (26-34); Mean Corpuscular Volume 91.6 fl (80-100); Mean Platelet Volume 10.8 fl (7.4-10.4); Platelet Count Result 228 k/mm3 (150-375); Red Blood Count 4.64 M/mm3 (4.2-5.4); White Blood Count 8.4 K/mm3 (4.5-10.0)
[2022-11-01 05:58] LABS: Alanine Aminotransferase 15 U/L (6-35); Albumin Level 3.6 g/dL (3.5-5.1); Alkaline Phosphatase 56 U/L (38-126); Anion Gap 5 mmol/L (8-16); Aspartate Amino Transferase 28 U/L (14-36); Bilirubin,Total 0.6 mg/dL (0.2-1.3); Blood Urea Nitrogen 21 mg/dL (7-17); Calcium 8.3 mg/dL (8.4-10.2); Carbon Dioxide 30 mmol/L (22-30); Chloride 106 mmol/L (98-107); Estimated CRCL calculation 41 ml/min; Estimated Glomerular Filt Rate 49; Glucose 126 mg/dL (65-110); Sodium 141 mmol/L (137-145)
[2022-11-01] MEDS: LEVOTHYROXINE SODIUM 75 MCG TABLET PO (06:13)
[2022-11-01 08:22] LABS: Glucose Point of Care 116 mg/dl (65-105)
[2022-11-01] MEDS: ATORVASTATIN 40 MG TABLET 80 MG PO (08:58)
[2022-11-01] MEDS: PANTOPRAZOLE SOD SESQUIHYDRATE 20 MG TAB PO (08:58)
[2022-11-01] MEDS: ISOSORBIDE MONONITRATE 60 MG TAB.ER.24H PO (08:58)
[2022-11-01] MEDS: ESCITALOPRAM OXALATE 10 MG TABLET 20 MG PO (08:58)
[2022-11-01] MEDS: LOSARTAN POTASSIUM 25 MG TABLET PO (08:58)
[2022-11-01] MEDS: ASPIRIN 81 MG ENTERIC TABLET PO (08:58)
[2022-11-01] MEDS: METOPROLOL SUCCINATE EXT REL 25 MG TABCR PO (08:59)
[2022-11-01] MEDS: CYANOCOBALAMIN 1,000 MCG TABLET 1000 MCG PO (08:59)
[2022-11-01] MEDS: GABAPENTIN 300 MG CAPSULE PO ×3 (08:59→18:51)
[2022-11-01] MEDS: CHOLECALCIFEROL 1,000 UNITS TABLET 2000 UNITS PO (08:59)
[2022-11-01] MEDS: CLOPIDOGREL BISULFATE 75 MG TABLET PO (09:00)
[2022-11-01 12:26] LABS: Glucose Point of Care 203 mg/dl (65-105)
[2022-11-01] MEDS: INSULIN ASPART (*BKC) 100 UNITS/ML SUB-Q ×2 (13:10→20:21)
--- NOTE | 2022-11-01 14:34 | PM.DS ---
DS: Admitting Diagnosis Discharge Date 11/01/2022 DS: Discharge Diagnosis Discharge Diagnosis (1) Stroke: Code(s): I63.9 - Cerebral infarction, unspecified Status: Acute Assessment and Plan: acute versus subacute. Patient was reported at [facility] recently (?10/21/22) CT head 10/29 and CTA head and neck with acute versus subacute right occipital lobe. Moderate stenosis right M2 middle cerebral artery and right P2 posterior cerebral artery. Neurology consulted Brain MRI pending Echocardiogram with bubble study pending Carotid US pending check lipid panel, A1c, B12 and folate TSH elevated 6.44 on 10/29 and she was instructed to increase levothyroxine 125 mcg daily Continue Aspirin 81 mg daily, Plavix 75 mg daily. Resume statin when medications verified and adjust per lipid panel if it has not been increased recently. BP control. Will give permissive hypertension for 24 hours, especially in light of syncope complaint PT/OT evaluation (2) Syncope: Qualifiers: Syncope type: unspecified Qualified Code(s): R55 - Syncope and collapse Code(s): R55 - Syncope and collapse Status: Acute Assessment and Plan: according to sister patient has been passing out cannot really obtain a clear history Monitor telemetry MRI brain shows acute infarct to right occipital lobe, old infarct to left temporal/parietal region, and extensive nonspecific white matter disease. echocardiogram pending. PT OT consult neurology consulted and appreciate recommendations. Monitor orthostatic vitals. 30 day event monitor at discharge. 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: with terminal manager use Diabetes mellitus complication status: with circulatory complication Diabetes mellitus complication detail: with other circulatory complications Qualified Code(s): E11.59 - Type 2 diabetes mellitus with other circulatory complications; Z79.4 - terminal manager (current) use of insulin Code(s): E11.9 - Type 2 diabetes mellitus without complications Status: Chronic Assessment and Plan: Accu-Cheks AC and HS will hold metformin insulin sliding scale as needed continue basal-bolus insulin A1c 6.9% (4) HTN (hypertension): Qualifiers: Hypertension type: primary hypertension Qualified Code(s): I10 - Essential (primary) hypertension Code(s): I10 - Essential (primary) hypertension Status: Acute Assessment and Plan: continue losartan and metoprolol at home doses. continue to monitor (5) Generalized muscle weakness: Code(s): M62.81 - Muscle weakness (generalized) Status: Acute Assessment and Plan: PT OT consult likely secondary to deconditioning patient is mainly homebound (6) Depression: Qualifiers: Depression Type: major depressive disorder Major depression recurrence: unspecified whether recurrent Active/Remission status: currently active Major depression episode severity: unspecified Qualified Code(s): F32.9 - Major depressive disorder, single episode, unspecified Code(s): F32.A - Depression, unspecified Status: Acute Assessment and Plan: Increasingly tearful, hypersomnia, patient stopped taking all her medications due to depression. She reports seeing multiple counselors in the past and is not interested in it. She denies suicidal plan or intent. continue lexapro at home dose. She does not appear to have been taking this. Replace B12. consider adding additional agent but will monitor mood for now. DS: Summary Time Spent with Patient Time attestation: Total time spent providing and/or coordinating discharge services: Exam Narrative: General: No acute distress.? Lying in bed. chronically ill appearing. Mental Status/Psych: Awake, alert and oriented x4 with clear speech. Tearful. Skin: Skin fair,
--- NOTE | 2022-11-01 16:32 | ECG_ITS ---
Measurements Intervals [place] Rate: 78 P: 59 IA: 161 QRS: 35 QRSD: 80 T: 60 QT: 380 QTc: 435 Interpretive Statements SINUS RHYTHM NORMAL ECG COMPARED TO ECG 10/29/2022 17:19:53 NO SIGNIFICANT CHANGES Electronically Signed On 11-01-2022 20:51:02 CDT by Igor Mora D.O.
[2022-11-01 16:37] LABS: Glucose Point of Care 147 mg/dl (65-105)
--- NOTE | 2022-11-01 16:44 | P.PNIM_ITS ---
Progress Note: A&P Assessment and Plan (1) Stroke: Qualifiers: CVA mechanism: unspecified Qualified Code(s): I63.9 - Cerebral infarction, unspecified Code(s): I63.9 - Cerebral infarction, unspecified Status: Acute Assessment and Plan: acute right occipital stroke. Patient was reported at [facility] recently appears to have been around 10/21/22 * CT head 10/29 and CTA head and neck with acute versus subacute right occipital lobe. Moderate stenosis right M2 middle cerebral artery and right P2 posterior cerebral artery. * Neurology consulted * Brain MRI shows acute right occipital infarct and old infarct in the left temporal parietal region. * Echocardiogram unremarkable. * Carotid US <50% stenosis right and left ICA. * lipid panel- LDL 153, give lipitor 80 mg daily. * A1c 6.9% and appears adequately controlled * B12 and folate within normal limits. * TSH elevated 6.44 on 10/29 and she was instructed to increase levothyroxine 125 mcg daily * Continue Aspirin 81 mg daily, Plavix 75 mg daily. * BP control. Will give permissive hypertension for 24 hours, especially in light of syncope complaint * PT/OT evaluation - home health recommended. Care coordination to arrange. 11/01/22 1900 * Repeat CT head without hemorrhagic conversion. Patient's neuro status returned to baseline. I suspect patient had syncopal episode with hypoperfusion. * Will monitor for seizures. Prolactin level pending * Orthostatic vitals Qshift. * Antihypertensives with hold parameters. Avoid hypotension. (2) Syncope: Qualifiers: Syncope type: unspecified Qualified Code(s): R55 - Syncope and collapse Code(s): R55 - Syncope and collapse Status: Acute Assessment and Plan: according to sister patient has been passing out cannot really obtain a clear history * Monitor telemetry * MRI brain shows acute infarct to right occipital lobe, old infarct to left temporal/parietal region, and extensive nonspecific white matter disease. * echocardiogram pending. * PT OT consult * neurology consulted and appreciate recommendations. * Monitor orthostatic vitals. * 30 day event monitor at discharge- to be placed in am 11/02/22 * Orthostatic vitals Qshift * 11/01/22 ABG with mild hypoxia paO2 70, but likely secondary to syncopal episode rather than contributing factor. (3) Diabetes: Qualifiers: Diabetes mellitus complication detail: with other circulatory complications Diabetes mellitus complication status: with circulatory complication Diabetes mellitus [facility] insulin use: with gullet slitter use Diabetes mellitus type: type 2 Qualified Code(s): E11.59 - Type 2 diabetes mellitus with other circulatory complications; Z79.4 - time buyer (current) use of insulin Code(s): E11.9 - Type 2 diabetes mellitus without complications Status: Chronic Assessment and Plan: Accu-Cheks AC and HS * will hold metformin inpatient x 72 hours from contrast imaging. * insulin sliding scale as needed * continue basal-bolus insulin * A1c 6.9% (4) HTN (hypertension): Qualifiers: Hypertension type: primary hypertension Qualified Code(s): I10 - Essential (primary) hypertension Code(s): I10 - Essential (primary) hypertension Status: Chronic Assessment and Plan: continue losartan and metoprolol at home doses. (5) Generalized muscle weakness: Code(s): M62.81 - Muscle weakness (generalized) Status: Acute Assessment and Plan: PT OT consult. likely se
--- NOTE | 2022-11-01 16:44 | PM.IMPN ---
Progress Note: A&P Assessment and Plan (1) Stroke: Qualifiers: CVA mechanism: unspecified Qualified Code(s): I63.9 - Cerebral infarction, unspecified Code(s): I63.9 - Cerebral infarction, unspecified Status: Acute Assessment and Plan: acute right occipital stroke. Patient was reported at [facility] recently appears to have been around 10/21/22 CT head 10/29 and CTA head and neck with acute versus subacute right occipital lobe. Moderate stenosis right M2 middle cerebral artery and right P2 posterior cerebral artery. Neurology consulted Brain MRI shows acute right occipital infarct and old infarct in the left temporal parietal region. Echocardiogram unremarkable. Carotid US <50% stenosis right and left ICA. lipid panel- LDL 153, give lipitor 80 mg daily. A1c 6.9% and appears adequately controlled B12 and folate within normal limits. TSH elevated 6.44 on 10/29 and she was instructed to increase levothyroxine 125 mcg daily Continue Aspirin 81 mg daily, Plavix 75 mg daily. BP control. Will give permissive hypertension for 24 hours, especially in light of syncope complaint PT/OT evaluation - home health recommended. Care coordination to arrange. 11/01/[address] head without hemorrhagic conversion. Patient's neuro status returned to baseline. I suspect patient had syncopal episode with hypoperfusion. Will monitor for seizures. Prolactin level pending Orthostatic vitals Qshift. Antihypertensives with hold parameters. Avoid hypotension. (2) Syncope: Qualifiers: Syncope type: unspecified Qualified Code(s): R55 - Syncope and collapse Code(s): R55 - Syncope and collapse Status: Acute Assessment and Plan: according to sister patient has been passing out cannot really obtain a clear history Monitor telemetry MRI brain shows acute infarct to right occipital lobe, old infarct to left temporal/parietal region, and extensive nonspecific white matter disease. echocardiogram pending. PT OT consult neurology consulted and appreciate recommendations. Monitor orthostatic vitals. 30 day event monitor at discharge- to be placed in am 11/02/22 Orthostatic vitals Qshift 11/01/22 ABG with mild hypoxia paO2 70, but likely secondary to syncopal episode rather than contributing factor. (3) Diabetes: Qualifiers: Diabetes mellitus complication detail: with other circulatory complications Diabetes mellitus complication status: with circulatory complication Diabetes mellitus watermaster insulin use: with senior care use Diabetes mellitus type: type 2 Qualified Code(s): E11.59 - Type 2 diabetes mellitus with other circulatory complications; Z79.4 - halfway (current) use of insulin Code(s): E11.9 - Type 2 diabetes mellitus without complications Status: Chronic Assessment and Plan: Accu-Cheks AC and HS will hold metformin inpatient x 72 hours from contrast imaging. insulin sliding scale as needed continue basal-bolus insulin A1c 6.9% (4) HTN (hypertension): Qualifiers: Hypertension type: primary hypertension Qualified Code(s): I10 - Essential (primary) hypertension Code(s): I10 - Essential (primary) hypertension Status: Chronic Assessment and Plan: continue losartan and metoprolol at home doses. (5) Generalized muscle weakness: Code(s): M62.81 - Muscle weakness (generalized) Status: Acute Assessment and Plan: PT OT consult. likely secondary to deconditioning patient is mainly homebound and her sister lives next door. (6) Depression: Qualifiers: Active/Remission status: currently active Depression Type: major depressive disorder Major depression episode severity: unspecified Major depression recurrence: unspecified whether recurrent Qualified Code(s): F32.9 - Major depressive disorder, single episode, unspecified
[2022-11-01 16:47] LABS: Base Excess ABG -0.9 mEq/l (+/-2.0); Fractional Inspired Oxygen 21 %; HCO3 ABG 23.2 mEq/l (22.0-26.0); Oxygen Content ABG 18.2 %vol (16.0-22.0); Oxygen Saturation ABG 94.6 % (95.0-100.0); Oxyhemoglobin 93.1 % THb (90.0-100.0); PCO2 ABG 36.7 mmHg (35.0-45.0); PO2 ABG 70.8 mmHg (80.0-100.0); PO2 FiO2 Ratio Arterial Blood 3.37 %; Total Hemoglobin 13.9 g/dL (12.0-18.0); pH ABG 7.418 (7.350-7.450)
[2022-11-01 16:48] LABS: Device ROOM AIR; Modified Allen's Test Unable to perform; Site Drawn RIGHT BRACHIAL
[2022-11-01] MEDS: ACETAMINOPHEN 325 MG TABLET 650 MG PO (18:53)
[2022-11-01 19:24] LABS: Lactic Acid Reflex 1.8 mmol/L (0.7-2.0)
[2022-11-01 19:50] LABS: Basophils Absolute Auto 0.1 K/mm3 (0.0-0.1); Basophils Percent Auto 0.8 % (0.2-1.2); Eosinophils Absolute Auto 0.2 K/mm3 (0-0.3); Eosinophils Percent Auto 2.6 % (0-4.4); Hematocrit 39.8 % (37.0-47.0); Hemoglobin 13.2 g/dL (12.0-15.0); Immature Granulocyte Absolute 0.04 K/mm3 (0.00-0.031); Immature Granulocyte Percent A 0.4 % (0-0.5); Lymphocytes Absolute Auto 0.82 K/mm3 (0.9-3.2); Lymphocytes Percent Auto 9.2 % (18.3-44.2); Mean Corpuscular HGB Conc 33.2 g/dl (32-36); Mean Corpuscular Hemoglobin 30.2 pg (26-34); Mean Corpuscular Volume 91.1 fl (80-100); Monocytes Absolute Auto 0.7 K/mm3 (0.1-0.6); Monocytes Percent Auto 7.4 % (2.6-8.5); Neutrophils Absolute Auto 7.1 K/mm3 (1.3-6.7); Neutrophils Percent Auto 79.6 % (45.5-73.1); Platelet Count Result 259 k/mm3 (150-375); Red Blood Count 4.37 M/mm3 (4.2-5.4); Red Cell Distribution Width 13.9 % (11.5-14.5); White Blood Count 8.9 K/mm3 (4.5-10.0)
[2022-11-01 19:55] LABS: Alanine Aminotransferase 17 U/L (6-35); Albumin Level 3.7 g/dL (3.5-5.1); Alkaline Phosphatase 57 U/L (38-126); Anion Gap 9 mmol/L (8-16); Aspartate Amino Transferase 29 U/L (14-36); Bilirubin,Total 0.7 mg/dL (0.2-1.3); Blood Urea Nitrogen 23 mg/dL (7-17); Calcium 8.3 mg/dL (8.4-10.2); Carbon Dioxide 25 mmol/L (22-30); Chloride 105 mmol/L (98-107); Estimated CRCL calculation 32 ml/min; Estimated Glomerular Filt Rate 37; Glucose 132 mg/dL (65-110); Potassium 3.9 mmol/L (3.4-5.0); Sodium 139 mmol/L (137-145)
--- NOTE | 2022-11-01 20:02 | PC.NURSE ---
11/01/22 1630 Patient had discharge orders to return home. Was going to wheel patient out to cardiology department first to have heart monitor applied due to discharge orders. Came back up to the floor with patient and family due to mix up on heart monitor orders. Patient was pale, went unresponsive, and lost control of urine. Had a nurse call Rapid Response and got patient back into bed. Patient regained consciousness Catherine Davis ordered a STAT head CT, STAT EKG, STAT ABG's and labs. Called Dr. Salter for further orders. No orders from Dr. Salter at this time.
[2022-11-01] MEDS: INSULIN GLARGINE (*BKC) 100 UNITS/ML 28 UNITS SUB-Q (20:20)
[2022-11-01 20:25] LABS: Glucose Point of Care 240 mg/dl (65-105)
--- NOTE | 2022-11-01 20:31 | PC.NURSE ---
11/01/22 Missing orders from Catherine not mentioned in previous note: Neuro Checks Q2hrs X 4.
[2022-11-02] VITALS (16 sets, daily range): BP systolic 79–106; BP diastolic 46–87; PULSE 65–85; RESP 16–20; TEMP 36.2–36.8; O2SAT 95–99
[2022-11-02] MEDS: LEVOTHYROXINE SODIUM 75 MCG TABLET PO (06:24)
[2022-11-02 07:51] LABS: Hematocrit 38.9 % (37.0-47.0); Hemoglobin 12.4 g/dL (12.0-15.0); Mean Corpuscular HGB Conc 31.9 g/dl (32-36); Mean Corpuscular Hemoglobin 29.5 pg (26-34); Mean Corpuscular Volume 92.4 fl (80-100); Mean Platelet Volume 10.7 fl (7.4-10.4); Platelet Count Result 228 k/mm3 (150-375); Red Blood Count 4.21 M/mm3 (4.2-5.4); Red Cell Distribution Width 14.3 % (11.5-14.5); White Blood Count 8.3 K/mm3 (4.5-10.0)
[2022-11-02 08:12] LABS: Anion Gap 3 mmol/L (8-16); Blood Urea Nitrogen 32 mg/dL (7-17); Calcium 7.8 mg/dL (8.4-10.2); Carbon Dioxide 34 mmol/L (22-30); Chloride 104 mmol/L (98-107); Estimated CRCL calculation 22 ml/min; Estimated Glomerular Filt Rate 23; Glucose 73 mg/dL (65-110); Potassium 4.1 mmol/L (3.4-5.0); Sodium 141 mmol/L (137-145)
[2022-11-02 08:31] LABS: Glucose Point of Care 72 mg/dl (65-105)
[2022-11-02] MEDS: ATORVASTATIN 40 MG TABLET 80 MG PO (08:50)
[2022-11-02] MEDS: METOPROLOL SUCCINATE EXT REL 25 MG TABCR PO (08:50)
[2022-11-02] MEDS: CHOLECALCIFEROL 1,000 UNITS TABLET 2000 UNITS PO (08:50)
[2022-11-02] MEDS: ESCITALOPRAM OXALATE 10 MG TABLET 20 MG PO (08:50)
[2022-11-02] MEDS: ASPIRIN 81 MG ENTERIC TABLET PO (08:50)
[2022-11-02] MEDS: PANTOPRAZOLE SOD SESQUIHYDRATE 20 MG TAB PO (08:51)
[2022-11-02] MEDS: ISOSORBIDE MONONITRATE 60 MG TAB.ER.24H PO (08:51)
[2022-11-02] MEDS: CYANOCOBALAMIN 1,000 MCG TABLET 1000 MCG PO (08:51)
[2022-11-02] MEDS: CLOPIDOGREL BISULFATE 75 MG TABLET PO (08:51)
[2022-11-02] MEDS: GABAPENTIN 300 MG CAPSULE PO ×3 (08:51→15:59)
[2022-11-02 12:09] LABS: Glucose Point of Care 159 mg/dl (65-105)
--- NOTE | 2022-11-02 12:14 | WPDNEUROPN ---
Progress Note: A&P Assessment and Plan (1) Unresponsive episode: Code(s): R41.89 - Other symptoms and signs involving cognitive functions and awareness Status: Acute (2) Stroke: Qualifiers: CVA mechanism: unspecified Qualified Code(s): I63.9 - Cerebral infarction, unspecified Code(s): I63.9 - Cerebral infarction, unspecified Status: Acute (3) Syncope: Qualifiers: Syncope type: unspecified Qualified Code(s): R55 - Syncope and collapse Code(s): R55 - Syncope and collapse Status: Acute Plan Maile Tobar is a 72 year old female with a history of diabetes, hypertension, hyperlipidemia presenting due to syncope. She was found to have acute R occipital infarct, likely secondary to large vessel disease (P2 stenosis). Patient had an episode of loss of consciousness yesterday on discharge. It sounds like there was some seizure-like activity -- oral motor movements, urinary incontinence. Her blood pressure has been on the lower side, so syncope is also a possibility. Given the stroke, she is at increase risk of having seizures. Patient also has a remote history of questionable seizure-like activity for which she was taking a seizure-medication, although more information surrounding this is not available. - Will obtain routine EEG - Attempted to call patient's sister for more information regarding episode and prior history of possible seizure-like activity, will try again - Continue Lipitor 80mg daily, goal LDL <70 - Continue Aspirin and Plavix x 3 months, then Aspirin monotherapy Subjective Date/time seen: 11/02/22 12:14 Interval history: Maile Tobar is a 72 year old female with a history of diabetes, hypertension, hyperlipidemia presenting due to syncope. Patient was initially see at [facility] a few days ago and was told that she had a TIA. She presented again to the Emergency room on 10/11o due to perioral numbness and tingling on the left side of the body. She was also very anxious at the time, so she received a dose of Ativan, which seemed to help her symptoms. She was discharged and was initially doing okay, but she did have an episode of loss of consciousness. Patient does not have any recollection of the fall itself. When she presented to the ED her CT head showed acute vs subacute infarct int the right occipital lobe. CTA brain/carotid showed moderate stenosis of the right M2 and right P2 segment. She is currently on Aspirin and Plavix. She takes Simvastatin 40mg daily. LDL from this admission is 153 and A1c is 6.9. EKG on presentation showed sinus rhythm. Blood pressure has been in the 140-160s. Patient reports feeling well. She has some tingling in her right upper extremity but no symptoms in the left side. She has blurry vision but she does not have her prescription glasses with her. Surface echocardiogram was done and unremarkable. Patient was in the process of being discharged yesterday. Her sister took her to their car and patient was in wheelchair. Patient reports that she lost consciousness but has not recollection of the event. She does not know how long she was out for. She did regain consciousness when she was back in her hospital room. Patient reports that her sister mentioned that she stopped talking suddenly, had some mouth movements, and urinary incontinence. Sister is not at bedside this morning to give more information. I attempted to call her to gather more information but was not able to get a hold of her. Her blood pressure was 92/49 yesterday around 1:50PM. Since then her BP has ranged between 93-106 systolic. Of note, patient did mention that she has been on seizure medication in the past year. She had an episode of unresponsiveness that was concerning for seizure, but patient discontinued the medication since she did not personally believe that she had a seizure. She does not know the name of the medicaiton. Review of Systems Constitutional:
--- NOTE | 2022-11-02 14:29 | PCPTNOTE ---
Attempted to see patient for PT, however per nursing patient's blood pressures have been orthostatic. Blood pressure 79/51 sitting. Patient not appropriate for PT at this time.
[2022-11-02] MEDS: ACETAMINOPHEN 325 MG TABLET 650 MG PO (14:32)
--- NOTE | 2022-11-02 14:36 | P.PNIM_ITS ---
Progress Note: A&P Assessment and Plan (1) Stroke: Qualifiers: CVA mechanism: unspecified Qualified Code(s): I63.9 - Cerebral infarction, unspecified Code(s): I63.9 - Cerebral infarction, unspecified Status: Acute Assessment and Plan: acute right occipital stroke. Patient was reportedly managed at [facility] recently, appears to have been around 10/21/22 * CT head 10/29 and CTA head and neck with acute versus subacute right occipital lobe. Moderate stenosis right M2 middle cerebral artery and right P2 posterior cerebral artery. * appreciate neurology consultation * Brain MRI shows acute right occipital infarct and old infarct in the left temporal parietal region. * Echocardiogram unremarkable. * Carotid US <50% stenosis right and left ICA. * lipid panel- LDL 153, give lipitor 80 mg daily.? * A1c 6.9% and appears adequately controlled * B12 and folate within normal limits. * TSH elevated 6.44 on 10/29 and she was instructed to increase levothyroxine 125 mcg daily * Continue Aspirin 81 mg daily, Plavix 75 mg daily. DAPT x3 months then transition to aspirin monotherapy * PT/OT evaluation - home health recommended. Care coordination to arrange. 11/01/22 1900 * Repeat CT head? without hemorrhagic conversion. Patient's neuro status returned to baseline. Suspect patient had syncopal episode with hypoperfusion - see below * Will monitor for seizures. Prolactin level pending * Orthostatic vitals Qshift.? * Antihypertensives with hold parameters. Avoid hypotension.? (2) Syncope: Qualifiers: Syncope type: unspecified Qualified Code(s): R55 - Syncope and collapse Code(s): R55 - Syncope and collapse Status: Acute Assessment and Plan: according to sister patient has been passing out but cannot really provide a clear history * Monitor on telemetry * MRI brain shows acute infarct to right occipital lobe, old infarct to left temporal/parietal region, and extensive nonspecific white matter disease. * echocardiogram unremarkable as above * ?PT/OT consult appreciated * 30 day event monitor at discharge * Orthostatic vitals Qshift * 11/01/22 ABG with mild hypoxia paO2 70, but likely secondary to syncopal episode rather than contributing factor.? * likely secondary to significant orthostatic hypotension. Could see plan below. * appreciate Neurology recommendations. Will obtain EEG (3) Orthostatic hypotension: Code(s): I95.1 - Orthostatic hypotension Status: Acute Assessment and Plan: Marked orthostatic hypotension. BP declined to 79/51 upon sitting and not able to complete orthostatic vital signs with standing as patient was symptomatic. * Likely contributing to syncopal episodes/decreased responsiveness * BP remains low, will administer 500 cc IV fluid bolus * initiate Toney hose * implement fall precaution * hold losartan and metoprolol * may need to consider addition of midodrine if BP not improved with above therapies (4) Diabetes: Qualifiers: Diabetes mellitus type: type 2 Diabetes mellitus custodial insulin use: with keno terminal operator use Diabetes mellitus complication status: with circulatory complication Diabetes mellitus complication detail: with other circulatory complications Qualified Code(s): E11.59 - Type 2 diabetes mellitus with other circulatory complications; Z79.4 - snf (current) use of insulin Code(s): E11.9 - Type 2 diabetes mellitus without complications Status: Chronic Assessment and Plan: ?Accu-Cheks AC and HS * ?will hold metformin inpatient x 72 reggie
--- NOTE | 2022-11-02 14:36 | PM.IMPN ---
Progress Note: A&P Assessment and Plan (1) Stroke: Qualifiers: CVA mechanism: unspecified Qualified Code(s): I63.9 - Cerebral infarction, unspecified Code(s): I63.9 - Cerebral infarction, unspecified Status: Acute Assessment and Plan: acute right occipital stroke. Patient was reportedly managed at [facility] recently, appears to have been around 10/21/22 CT head 10/29 and CTA head and neck with acute versus subacute right occipital lobe. Moderate stenosis right M2 middle cerebral artery and right P2 posterior cerebral artery. appreciate neurology consultation Brain MRI shows acute right occipital infarct and old infarct in the left temporal parietal region. Echocardiogram unremarkable. Carotid US <50% stenosis right and left ICA. lipid panel- LDL 153, give lipitor 80 mg daily.? A1c 6.9% and appears adequately controlled B12 and folate within normal limits. TSH elevated 6.44 on 10/29 and she was instructed to increase levothyroxine 125 mcg daily Continue Aspirin 81 mg daily, Plavix 75 mg daily. DAPT x3 months then transition to aspirin monotherapy PT/OT evaluation - home health recommended. Care coordination to arrange. 11/01/[address] head? without hemorrhagic conversion. Patient's neuro status returned to baseline. Suspect patient had syncopal episode with hypoperfusion - see below Will monitor for seizures. Prolactin level pending Orthostatic vitals Qshift.? Antihypertensives with hold parameters. Avoid hypotension.? (2) Syncope: Qualifiers: Syncope type: unspecified Qualified Code(s): R55 - Syncope and collapse Code(s): R55 - Syncope and collapse Status: Acute Assessment and Plan: according to sister patient has been passing out but cannot really provide a clear history Monitor on telemetry MRI brain shows acute infarct to right occipital lobe, old infarct to left temporal/parietal region, and extensive nonspecific white matter disease. echocardiogram unremarkable as above ?PT/OT consult appreciated 30 day event monitor at discharge Orthostatic vitals Qshift 11/01/22 ABG with mild hypoxia paO2 70, but likely secondary to syncopal episode rather than contributing factor.? likely secondary to significant orthostatic hypotension. Could see plan below. appreciate Neurology recommendations. Will obtain EEG (3) Orthostatic hypotension: Code(s): I95.1 - Orthostatic hypotension Status: Acute Assessment and Plan: Marked orthostatic hypotension. BP declined to 79/51 upon sitting and not able to complete orthostatic vital signs with standing as patient was symptomatic. Likely contributing to syncopal episodes/decreased responsiveness BP remains low, will administer 500 cc IV fluid bolus initiate Toney susannae implement fall precaution hold losartan and metoprolol may need to consider addition of midodrine if BP not improved with above therapies (4) Diabetes: Qualifiers: Diabetes mellitus type: type 2 Diabetes mellitus superintendent marine oil terminal insulin use: with superintendent marine oil terminal use Diabetes mellitus complication status: with circulatory complication Diabetes mellitus complication detail: with other circulatory complications Qualified Code(s): E11.59 - Type 2 diabetes mellitus with other circulatory complications; Z79.4 - middle or intermediate school principal (current) use of insulin Code(s): E11.9 - Type 2 diabetes mellitus without complications Status: Chronic Assessment and Plan: ?Accu-Cheks AC and HS ?will hold metformin inpatient x 72 hours from contrast imaging. ?insulin sliding scale as needed continue basal-bolus insulin A1c 6.9% (5) HTN (hypertension): Qualifiers: Hypertension type: primary hypertension Qualified Code(s): I10 - Essential (primary) hypertension Code(s): I10 - Essential (primary) hypertension Status: Chronic Assessment and Plan: patient with orthostatic hypot
[2022-11-02] MEDS: SODIUM CHLORIDE 0.9% IV 500 ML IV CONT (16:00)
[2022-11-02 17:06] LABS: Glucose Point of Care 154 mg/dl (65-105)
[2022-11-02 20:14] LABS: Glucose Point of Care 150 mg/dl (65-105)
[2022-11-03] VITALS (13 sets, daily range): BP systolic 99–117; BP diastolic 47–58; PULSE 70–92; RESP 16–20; TEMP 36.6–37.2; O2SAT 97–99
[2022-11-03 05:21] LABS: Hematocrit 35.7 % (37.0-47.0); Hemoglobin 11.5 g/dL (12.0-15.0); Mean Corpuscular HGB Conc 32.2 g/dl (32-36); Mean Corpuscular Hemoglobin 29.7 pg (26-34); Mean Corpuscular Volume 92.2 fl (80-100); Mean Platelet Volume 11.1 fl (7.4-10.4); Platelet Count Result 194 k/mm3 (150-375); Red Blood Count 3.87 M/mm3 (4.2-5.4); White Blood Count 9.6 K/mm3 (4.5-10.0)
[2022-11-03 05:28] LABS: Anion Gap 3 mmol/L (8-16); Blood Urea Nitrogen 28 mg/dL (7-17); Calcium 7.1 mg/dL (8.4-10.2); Carbon Dioxide 28 mmol/L (22-30); Chloride 107 mmol/L (98-107); Estimated CRCL calculation 38 ml/min; Estimated Glomerular Filt Rate 44; Glucose 149 mg/dL (65-110); Potassium 4.3 mmol/L (3.4-5.0); Sodium 138 mmol/L (137-145)
[2022-11-03] MEDS: LEVOTHYROXINE SODIUM 75 MCG TABLET PO (06:09)
[2022-11-03] MEDS: PANTOPRAZOLE SOD SESQUIHYDRATE 20 MG TAB PO (08:26)
[2022-11-03] MEDS: ESCITALOPRAM OXALATE 10 MG TABLET 20 MG PO (08:26)
[2022-11-03] MEDS: SODIUM CHLORIDE 0.9% IV 1,000 ML 75 ML IV CONT ×2 (08:26→21:51)
[2022-11-03] MEDS: ISOSORBIDE MONONITRATE 60 MG TAB.ER.24H PO (08:27)
[2022-11-03] MEDS: CYANOCOBALAMIN 1,000 MCG TABLET 1000 MCG PO (08:27)
[2022-11-03] MEDS: ATORVASTATIN 40 MG TABLET 80 MG PO (08:27)
[2022-11-03] MEDS: CHOLECALCIFEROL 1,000 UNITS TABLET 2000 UNITS PO (08:27)
[2022-11-03] MEDS: CLOPIDOGREL BISULFATE 75 MG TABLET PO (08:27)
[2022-11-03] MEDS: ASPIRIN 81 MG ENTERIC TABLET PO (08:27)
[2022-11-03] MEDS: GABAPENTIN 300 MG CAPSULE PO ×3 (08:27→16:46)
[2022-11-03] MEDS: ACETAMINOPHEN 325 MG TABLET 650 MG PO (08:33)
[2022-11-03 08:41] LABS: Glucose Point of Care 121 mg/dl (65-105)
--- NOTE | 2022-11-03 11:33 | WPDNEUROPN ---
Progress Note: A&P Assessment and Plan (1) Unresponsive episode: Code(s): R41.89 - Other symptoms and signs involving cognitive functions and awareness Status: Acute (2) Stroke: Qualifiers: CVA mechanism: unspecified Qualified Code(s): I63.9 - Cerebral infarction, unspecified Code(s): I63.9 - Cerebral infarction, unspecified Status: Acute (3) Syncope: Qualifiers: Syncope type: unspecified Qualified Code(s): R55 - Syncope and collapse Code(s): R55 - Syncope and collapse Status: Acute Plan Maile Tobar is a 72 year old female with a history of diabetes, hypertension, hyperlipidemia presenting due to syncope. She was found to have acute R occipital infarct, likely secondary to large vessel disease (P2 stenosis). Patient had an episode of loss of consciousness on discharge. After discussion with sister about further details regarding the spell, and blood pressure dropping down to 79 systolic on orthostatics, seems like orthostatic hypotension is most likely the culprit. However, there have been concerns in the past for seizure-like activity. We do not have much information regarding the spells, but patient was put on Keppra 500mg BID, which she discontinued on her own since she believed that she did not have a seizure . - Will obtain routine EEG - Should probably be back on Keppra 500mg BID -- as mentioned above there is not much detail surrounding the prior episodes, but she was prescribed Keppra at same point that patient discontinued on her own. She is at risk for seizures in the future given stroke. - Continue Lipitor 80mg daily, goal LDL <70 - Continue Aspirin and Plavix x 3 months, then Aspirin monotherapy Subjective Date/time seen: 11/03/22 11:33 Interval history: Maile Tobar is a 72 year old female with a history of diabetes, hypertension, hyperlipidemia presenting due to syncope. Patient was initially see at [facility] a few days ago and was told that she had a TIA. She presented again to the Emergency room on 10/29 due to perioral numbness and tingling on the left side of the body. She was also very anxious at the time, so she received a dose of Ativan, which seemed to help her symptoms. She was discharged and was initially doing okay, but she did have an episode of loss of consciousness. Patient does not have any recollection of the fall itself. When she presented to the ED her CT head showed acute vs subacute infarct int the right occipital lobe. CTA brain/carotid showed moderate stenosis of the right M2 and right P2 segment. She is currently on Aspirin and Plavix. She takes Simvastatin 40mg daily. LDL from this admission is 153 and A1c is 6.9. EKG on presentation showed sinus rhythm. Blood pressure has been in the 140-160s. Patient reports feeling well. She has some tingling in her right upper extremity but no symptoms in the left side. She has blurry vision but she does not have her prescription glasses with her. Surface echocardiogram was done and unremarkable. Patient was in the process of being discharged on 11/01. Her sister took her to their car and patient was in wheelchair. Patient reports that she lost consciousness but has not recollection of the event. She does not know how long she was out for. She did regain consciousness when she was back in her hospital room. Patient reports that her sister mentioned that she stopped talking suddenly, eyes were closed, lips pursed out, and had urinary incontinence. Blood pressure has been quite labile. Orthostatics were positive with BP dropping to 79/51 while sitting. Per sister, patient was taking Keppra 500mg BID, but eventually discontinued it on her own. Review of Systems Eyes: Comments: left visual field cut Cardiovascular: Cardiovascular: Reports no additional cardiovascular complaints Respiratory: Respiratory: Reports no additional respiratory complaints Gastrointestinal: Gastrointe
[2022-11-03 12:30] LABS: Glucose Point of Care 175 mg/dl (65-105)
--- NOTE | 2022-11-03 14:56 | P.PNIM_ITS ---
Progress Note: A&P Assessment and Plan (1) Stroke: Qualifiers: CVA mechanism: unspecified Qualified Code(s): I63.9 - Cerebral infarction, unspecified Code(s): I63.9 - Cerebral infarction, unspecified Status: Acute Assessment and Plan: acute right occipital stroke. Patient was reportedly managed at [facility] recently, appears to have been around 10/21/22 * CT head 10/29 and CTA head and neck with acute versus subacute right occipital lobe. Moderate stenosis right M2 middle cerebral artery and right P2 posterior cerebral artery. * appreciate neurology consultation * Brain MRI shows acute right occipital infarct and old infarct in the left temporal parietal region. * Echocardiogram unremarkable. * Carotid US <50% stenosis right and left ICA. * lipid panel- LDL 153, give lipitor 80 mg daily.? * A1c 6.9% and appears adequately controlled * B12 and folate within normal limits. * TSH elevated 6.44 on 10/29 and she was instructed to increase levothyroxine 125 mcg daily * Continue Aspirin 81 mg daily, Plavix 75 mg daily. DAPT x3 months then transition to aspirin monotherapy * PT/OT evaluation - home health recommended. Care coordination to arrange. 11/01/22 1900 * Repeat CT head? without hemorrhagic conversion. Patient's neuro status returned to baseline. Suspect patient had syncopal episode with hypoperfusion - see below * Will monitor for seizures. Prolactin level pending * Orthostatic vitals Qshift.? (2) Syncope: Qualifiers: Syncope type: unspecified Qualified Code(s): R55 - Syncope and collapse Code(s): R55 - Syncope and collapse Status: Acute Assessment and Plan: according to sister patient has been passing out but cannot really provide a clear history * Monitor on telemetry * MRI brain shows acute infarct to right occipital lobe, old infarct to left temporal/parietal region, and extensive nonspecific white matter disease. * echocardiogram unremarkable as above * ?PT/OT consult appreciated * 30 day event monitor at discharge * Orthostatic vitals Qshift * 11/01/22 ABG with mild hypoxia paO2 70, but likely secondary to syncopal episode rather than contributing factor.? * likely secondary to significant orthostatic hypotension. See plan below. * appreciate Neurology recommendations. Awaiting EEG (3) Orthostatic hypotension: Code(s): I95.1 - Orthostatic hypotension Status: Acute Assessment and Plan: Marked orthostatic hypotension. BP declined to 79/51 upon sitting and not able to complete orthostatic vital signs with standing as patient was symptomatic. * Likely contributing to syncopal episodes/decreased responsiveness * Received 500 cc IV fluid bolus yesterday. Continue with maintenance IV fluids, normal saline at 75 mL/hour * Toney hose * Fall precautions * hold losartan and metoprolol * Monitor orthostatics Q shift. Hopeful improvement with fluid hydration and holding of antihypertensives * Check cortisol * may need to consider addition of midodrine if BP not improved with above therapies (4) Diabetes: Qualifiers: Diabetes mellitus type: type 2 Diabetes mellitus assistant terminal manager insulin use: with assistant terminal manager use Diabetes mellitus complication status: with circulatory complication Diabetes mellitus complication detail: with other circulatory complications Qualified Code(s): E11.59 - Type 2 diabetes mellitus with other circulatory complications; Z79.4 - senior living (current) use of insulin Code(s): E11.9 - Type 2 diabetes mellitus without complications Status: Chronic
--- NOTE | 2022-11-03 14:56 | PM.IMPN ---
Progress Note: A&P Assessment and Plan (1) Stroke: Qualifiers: CVA mechanism: unspecified Qualified Code(s): I63.9 - Cerebral infarction, unspecified Code(s): I63.9 - Cerebral infarction, unspecified Status: Acute Assessment and Plan: acute right occipital stroke. Patient was reportedly managed at [facility] recently, appears to have been around 10/21/22 CT head 10/29 and CTA head and neck with acute versus subacute right occipital lobe. Moderate stenosis right M2 middle cerebral artery and right P2 posterior cerebral artery. appreciate neurology consultation Brain MRI shows acute right occipital infarct and old infarct in the left temporal parietal region. Echocardiogram unremarkable. Carotid US <50% stenosis right and left ICA. lipid panel- LDL 153, give lipitor 80 mg daily.? A1c 6.9% and appears adequately controlled B12 and folate within normal limits. TSH elevated 6.44 on 10/29 and she was instructed to increase levothyroxine 125 mcg daily Continue Aspirin 81 mg daily, Plavix 75 mg daily. DAPT x3 months then transition to aspirin monotherapy PT/OT evaluation - home health recommended. Care coordination to arrange. 11/01/[address] head? without hemorrhagic conversion. Patient's neuro status returned to baseline. Suspect patient had syncopal episode with hypoperfusion - see below Will monitor for seizures. Prolactin level pending Orthostatic vitals Qshift.? (2) Syncope: Qualifiers: Syncope type: unspecified Qualified Code(s): R55 - Syncope and collapse Code(s): R55 - Syncope and collapse Status: Acute Assessment and Plan: according to sister patient has been passing out but cannot really provide a clear history Monitor on telemetry MRI brain shows acute infarct to right occipital lobe, old infarct to left temporal/parietal region, and extensive nonspecific white matter disease. echocardiogram unremarkable as above ?PT/OT consult appreciated 30 day event monitor at discharge Orthostatic vitals Qshift 11/01/22 ABG with mild hypoxia paO2 70, but likely secondary to syncopal episode rather than contributing factor.? likely secondary to significant orthostatic hypotension. See plan below. appreciate Neurology recommendations. Awaiting EEG (3) Orthostatic hypotension: Code(s): I95.1 - Orthostatic hypotension Status: Acute Assessment and Plan: Marked orthostatic hypotension. BP declined to 79/51 upon sitting and not able to complete orthostatic vital signs with standing as patient was symptomatic. Likely contributing to syncopal episodes/decreased responsiveness Received 500 cc IV fluid bolus yesterday. Continue with maintenance IV fluids, normal saline at 75 mL/hour Toney hose Fall precautions hold losartan and metoprolol Monitor orthostatics Q shift. Hopeful improvement with fluid hydration and holding of antihypertensives Check cortisol may need to consider addition of midodrine if BP not improved with above therapies (4) Diabetes: Qualifiers: Diabetes mellitus type: type 2 Diabetes mellitus long-term insulin use: with long-term use Diabetes mellitus complication status: with circulatory complication Diabetes mellitus complication detail: with other circulatory complications Qualified Code(s): E11.59 - Type 2 diabetes mellitus with other circulatory complications; Z79.4 - manager terminal (current) use of insulin Code(s): E11.9 - Type 2 diabetes mellitus without complications Status: Chronic Assessment and Plan: ?Accu-Cheks AC and HS Home metformin on hold while inpatient ?insulin sliding scale as needed continue basal-bolus insulin A1c 6.9% (5) HTN (hypertension): Qualifiers: Hypertension type: primary hypertension Qualified Code(s): I10 - Essential (primary) hypertension Code(s): I10 - Essential (primary) hypertension Status: Chronic
[2022-11-03 17:12] LABS: Glucose Point of Care 134 mg/dl (65-105)
[2022-11-03] MEDS: INSULIN GLARGINE (*BKC) 100 UNITS/ML 28 UNITS SUB-Q (20:17)
[2022-11-03 20:29] LABS: Glucose Point of Care 169 mg/dl (65-105)
[2022-11-04] VITALS (9 sets, daily range): BP systolic 112–140; BP diastolic 58–84; PULSE 71–97; RESP 16–18; TEMP 36.5–36.6; O2SAT 99–100
[2022-11-04 05:04] LABS: Hematocrit 35.6 % (37.0-47.0); Hemoglobin 11.5 g/dL (12.0-15.0); Mean Corpuscular HGB Conc 32.3 g/dl (32-36); Mean Corpuscular Hemoglobin 29.5 pg (26-34); Mean Corpuscular Volume 91.3 fl (80-100); Mean Platelet Volume 11.2 fl (7.4-10.4); Platelet Count Result 196 k/mm3 (150-375); Red Cell Distribution Width 13.6 % (11.5-14.5); White Blood Count 6.4 K/mm3 (4.5-10.0)
[2022-11-04 05:17] LABS: Anion Gap 3 mmol/L (8-16); Blood Urea Nitrogen 18 mg/dL (7-17); Calcium 7.2 mg/dL (8.4-10.2); Carbon Dioxide 29 mmol/L (22-30); Chloride 111 mmol/L (98-107); Estimated CRCL calculation 45 ml/min; Estimated Glomerular Filt Rate 54; Glucose 73 mg/dL (65-110); Potassium 3.8 mmol/L (3.4-5.0); Sodium 143 mmol/L (137-145)
[2022-11-04] MEDS: LEVOTHYROXINE SODIUM 75 MCG TABLET PO (05:51)
[2022-11-04] MEDS: ISOSORBIDE MONONITRATE 60 MG TAB.ER.24H PO (08:31)
--- NOTE | 2022-11-04 08:31 | PC.NURSE ---
POC Glucose 67. Pt given orange juice, apple juice, and is eating breakfast. Will recheck and continue to monitor.
[2022-11-04] MEDS: CLOPIDOGREL BISULFATE 75 MG TABLET PO (08:32)
[2022-11-04] MEDS: ATORVASTATIN 40 MG TABLET 80 MG PO (08:32)
[2022-11-04] MEDS: PANTOPRAZOLE SOD SESQUIHYDRATE 20 MG TAB PO (08:32)
[2022-11-04] MEDS: CHOLECALCIFEROL 1,000 UNITS TABLET 2000 UNITS PO (08:32)
[2022-11-04] MEDS: ESCITALOPRAM OXALATE 10 MG TABLET 20 MG PO (08:32)
[2022-11-04] MEDS: ASPIRIN 81 MG ENTERIC TABLET PO (08:32)
[2022-11-04] MEDS: GABAPENTIN 300 MG CAPSULE PO ×2 (08:32→14:12)
[2022-11-04] MEDS: CYANOCOBALAMIN 1,000 MCG TABLET 1000 MCG PO (08:32)
[2022-11-04 08:34] LABS: Glucose Point of Care 67 mg/dl (65-105)
[2022-11-04 12:44] LABS: Glucose Point of Care 100 mg/dl (65-105)
[2022-11-04] MEDS: SODIUM CHLORIDE 0.9% IV 1,000 ML 75 ML IV CONT (14:11)
[2022-11-04] MEDS: MECLIZINE HCL 12.5 MG TABLET PO (14:12)
--- NOTE | 2022-11-04 15:17 | P.DS_ITS ---
DS: Admitting Diagnosis Discharge Date 11/04/2022 Admitting Diagnosis CVA DS: Discharge Diagnosis Discharge Diagnosis (1) Stroke: Qualifiers: CVA mechanism: unspecified Qualified Code(s): I63.9 - Cerebral infarction, unspecified Code(s): I63.9 - Cerebral infarction, unspecified Status: Acute Assessment and Plan: acute right occipital stroke. Patient was reportedly managed at [facility] recently, appears to have been around 10/21/22 * CT head 10/29 and CTA head and neck with acute versus subacute right occipital lobe. Moderate stenosis right M2 middle cerebral artery and right P2 posterior cerebral artery. * appreciate neurology consultation * Brain MRI shows acute right occipital infarct and old infarct in the left temporal parietal region. * Echocardiogram unremarkable. * Carotid US <50% stenosis right and left ICA. * lipid panel- LDL 153, give lipitor 80 mg daily.? * A1c 6.9% and appears adequately controlled * B12 and folate within normal limits. * Continue Aspirin 81 mg daily, Plavix 75 mg daily. DAPT x3 months then transition to aspirin monotherapy * PT/OT evaluation - home health recommended. Care coordination to arrange. 11/01/22 1900 * Repeat CT head? without hemorrhagic conversion. Patient's neuro status returned to baseline. Suspect patient had syncopal episode with hypoperfusion - see below * Seizure less likely. EEG ordered during admission, not able to be completed. She can follow-up for outpatient EEG (2) Syncope: Qualifiers: Syncope type: unspecified Qualified Code(s): R55 - Syncope and collapse Code(s): R55 - Syncope and collapse Status: Acute Assessment and Plan: according to sister patient has been passing out but cannot really provide a clear history * Monitor on telemetry * MRI brain shows acute infarct to right occipital lobe, old infarct to left temporal/parietal region, and extensive nonspecific white matter disease. * echocardiogram unremarkable as above * ?PT/OT consult appreciated * 30 day event monitor arranged at discharge * Patient noted to be orthostatic, likely etiology. See plan below * 11/01/22 ABG with mild hypoxia paO2 70, but likely secondary to syncopal episode rather than contributing factor.? * appreciate Neurology recommendations. Outpatient EEG (3) Orthostatic hypotension: Code(s): I95.1 - Orthostatic hypotension Status: Acute Assessment and Plan: Marked orthostatic hypotension. BP declined to 79/51 upon sitting and not able to complete orthostatic vital signs with standing as patient was symptomatic. * Likely contributing to syncopal episodes/decreased responsiveness * Received 500 cc IV fluid bolus yesterday. Continue with maintenance IV fluids, normal saline at 75 mL/hour * Toney powers * Fall precautions * losartan and metoprolol held * BP improved with above measures. Orthostatics negative on day of discharge. Precautions discussed with patient at length (4) Diabetes: Qualifiers: Diabetes mellitus type: type 2 Diabetes mellitus terminal operator insulin use: with retirement use Diabetes mellitus complication status: with circulatory complication Diabetes mellitus complication detail: with other circulatory complications Qualified Code(s): E11.59 - Type 2 diabetes mellitus with other circulatory complications; Z79.4 - roasterman (current) use of insulin Code(s): E11.9 - Type 2 diabetes mellitus without complications Status: Chronic Assessment and Plan: A1c 6.9 * Continue home metformin (5
--- NOTE | 2022-11-04 15:17 | PM.DS ---
DS: Admitting Diagnosis Discharge Date 11/04/2022 Admitting Diagnosis CVA DS: Discharge Diagnosis Discharge Diagnosis (1) Stroke: Qualifiers: CVA mechanism: unspecified Qualified Code(s): I63.9 - Cerebral infarction, unspecified Code(s): I63.9 - Cerebral infarction, unspecified Status: Acute Assessment and Plan: acute right occipital stroke. Patient was reportedly managed at [facility] recently, appears to have been around 10/21/22 CT head 10/29 and CTA head and neck with acute versus subacute right occipital lobe. Moderate stenosis right M2 middle cerebral artery and right P2 posterior cerebral artery. appreciate neurology consultation Brain MRI shows acute right occipital infarct and old infarct in the left temporal parietal region. Echocardiogram unremarkable. Carotid US <50% stenosis right and left ICA. lipid panel- LDL 153, give lipitor 80 mg daily.? A1c 6.9% and appears adequately controlled B12 and folate within normal limits. Continue Aspirin 81 mg daily, Plavix 75 mg daily. DAPT x3 months then transition to aspirin monotherapy PT/OT evaluation - home health recommended. Care coordination to arrange. 11/01/[address] head? without hemorrhagic conversion. Patient's neuro status returned to baseline. Suspect patient had syncopal episode with hypoperfusion - see below Seizure less likely. EEG ordered during admission, not able to be completed. She can follow-up for outpatient EEG (2) Syncope: Qualifiers: Syncope type: unspecified Qualified Code(s): R55 - Syncope and collapse Code(s): R55 - Syncope and collapse Status: Acute Assessment and Plan: according to sister patient has been passing out but cannot really provide a clear history Monitor on telemetry MRI brain shows acute infarct to right occipital lobe, old infarct to left temporal/parietal region, and extensive nonspecific white matter disease. echocardiogram unremarkable as above ?PT/OT consult appreciated 30 day event monitor arranged at discharge Patient noted to be orthostatic, likely etiology. See plan below 11/01/22 ABG with mild hypoxia paO2 70, but likely secondary to syncopal episode rather than contributing factor.? appreciate Neurology recommendations. Outpatient EEG (3) Orthostatic hypotension: Code(s): I95.1 - Orthostatic hypotension Status: Acute Assessment and Plan: Marked orthostatic hypotension. BP declined to 79/51 upon sitting and not able to complete orthostatic vital signs with standing as patient was symptomatic. Likely contributing to syncopal episodes/decreased responsiveness Received 500 cc IV fluid bolus yesterday. Continue with maintenance IV fluids, normal saline at 75 mL/hour Toney hose Fall precautions losartan and metoprolol held BP improved with above measures. Orthostatics negative on day of discharge. Precautions discussed with patient at length (4) Diabetes: Qualifiers: Diabetes mellitus type: type 2 Diabetes mellitus long term care pharmacist insulin use: with long term care pharmacist use Diabetes mellitus complication status: with circulatory complication Diabetes mellitus complication detail: with other circulatory complications Qualified Code(s): E11.59 - Type 2 diabetes mellitus with other circulatory complications; Z79.4 - group home (current) use of insulin Code(s): E11.9 - Type 2 diabetes mellitus without complications Status: Chronic Assessment and Plan: A1c 6.9 Continue home metformin (5) HTN (hypertension): Qualifiers: Hypertension type: primary hypertension Qualified Code(s): I10 - Essential (primary) hypertension Code(s): I10 - Essential (primary) hypertension Status: Chronic Assessment and Plan: patient with orthostatic hypotension. Antihypertensives held. See above (6) Generalized muscle weakness: Code(s): M62.81 - Muscle weakness (
--- NOTE | 2022-11-08 09:06 | WPDNEUROLOGY ---
Neurology EEG Report General Information Date of Study: 11/04/22 TEST eeg DIAGNOSIS Unresponsiveness CONDITION OF RECORDING awake drowsy, and sleep EEG NUMBER [id number] CLINICAL HISTORY patient has been here at hospital for several days for syncopal episode. She was being released when she lost consciousness and had loss of bladder control as well. EEG DESCRIPTION Basic resting occipital frequency consists of large amount of well-organized low voltage 8 to 10 hertz per 2nd alpha admixed with low-voltage 15 to 18 hertz per 2nd beta. During drowsiness low-voltage beta activity seen diffusely admixed with waxing and waning posterior alpha rhythm. Bilateral symmetrical sleep activity seen during sleep. Hyperventilation not done. Photic stimulation not done. Non paroxysmal. Nonfocal. Nonlateralizing. IMPRESSION Normal record does
== END 2022-11-04 16:05 | disposition home health service (06) | DRG 66 ==
LOC: ANHED 10-31 03:03 → ANH2MED 10-31 03:34
PROVIDERS: Nurse Practitioner Family; Admitting Provider Internal Medicine; Emergency Provider Emergency Medicine; PCP Internal Medicine; Visit Provider Physician Assistant
DX: I63.511 Cerebral infarction due to unspecified occlusion or stenosis of right middle cerebral artery (principal); I95.1 Orthostatic hypotension; E11.59 Type 2 diabetes mellitus with other circulatory complications; I10 Essential (primary) hypertension; M62.81 Muscle weakness (generalized); F32.9 Major depressive disorder, single episode, unspecified; E03.9 Hypothyroidism, unspecified; E78.5 Hyperlipidemia, unspecified; Z79.4 Long term (current) use of insulin; Z86.73 Personal history of transient ischemic attack (TIA), and cerebral infarction without residual deficits; Z90.49 Acquired absence of other specified parts of digestive tract
CPT/HCPCS: 36415; 36600; 70450; 70496; 70498; 70544; 70551; 71045; 73080; 80048; 80053; 80061; 81003; 82306; 82607; 82746; 82805; 82948; 83036; 83605; 83735; 84145; 84146; 84443; 84484; 85025; 85027; 85610; 85730; 93005; 93306; 93880; 95816; 97110; 97161; 97165; 97530; 99285; A9270; G0378; J1815; J7030; J7040; Q9967

== ENCOUNTER 2023-04-17 16:05 | Emergency (ER) | payer OTHER, SELFPAY ==
--- NOTE | ~2023-04-17 | CT_ITS ---
EXAMINATION: CT brain wo con DATE: 04/17/2023 16:49 INDICATION: fall . TECHNIQUE: Computed tomography (CT) of the head was performed without intravenous contrast. The mA wa s adjusted according to patient size. Iterative reconstruction technique was employed. The dose-lengt h product was 605.33 mGy-cm. COMPARISON: 11/01/2022. FINDINGS: No acute intracranial hemorrhage or extra-axial fluid collection. No hydrocephalus, mass, or herniation. No acute ischemic infarct. Unremarkable dural venous sinus attenuation. No acute osseous abnormality. Trace right mastoid fluid, the remaining aerated spaces are clear. Moderate atrophy and severe chronic white matter change. Atherosclerotic intracranial calcification. Bilateral lens replacements. Bilateral basal ganglia calcification. Right medial occipital encephalom alacia, likely old infarct. Chronic right basal ganglia and right thalamic lacunar infarcts. Chronic focal pontine infarct. IMPRESSION: No acute intracranial process. Reviewed, dictated and finalized at location K. L MODEL BUILDER
--- NOTE | ~2023-04-17 | XR_ITS ---
EXAMINATION: XR chest 2V DATE: 04/17/2023 17:01 INDICATION: Fall TECHNIQUE: PA and lateral views of the chest were obtained. COMPARISON: Chest radiograph dated 10/30/2022 FINDINGS: The lungs remain clear with no focal airspace opacities, pulmonary edema, pleural effusion or pneumot horax. The cardiomediastinal silhouette is normal. Cholecystectomy clips in right upper quadrant. Mil d thoracic and moderate upper lumbar spondylosis. IMPRESSION: 1. No acute cardiopulmonary disease. Reviewed, dictated and finalized at location A. GER INFRASTRUCTURE
--- NOTE | ~2023-04-17 | XR_ITS ---
EXAM: XR knee LT min 4V DATE: 04/17/2023 17:01 HISTORY: pain . COMPARISON: None available. FINDINGS: Normal mineralization. No fracture or dislocation. No lytic or blastic lesion. Mild tricom partmental osteoarthritis. Moderate quadriceps enthesopathy. No erosion or periosteal change. Atheros clerotic calcifications. IMPRESSION: No acute osseous finding in the left knee. Reviewed, dictated and finalized at location K. GEMENT SPECIALIST
--- NOTE | ~2023-04-17 | CT_ITS ---
EXAMINATION: CTA chest PE protocol DATE: 04/17/2023 23:26 INDICATION: syncope, elevated dimer TECHNIQUE: Computed tomography angiography (CTA) of the chest was performed with 100 mL Omnipaque-350 intravenous contrast timed to evaluate the pulmonary arteries. Coronal maximum intensity projection 3D-reconstructions were created by the technologist. The dose-length product (DLP) was 284.69 mGy-cm. Automated exposure control and iterative reconstruction technique were employed. COMPARISON: X-ray chest, same date. FINDINGS: Lung parenchyma and airways: Dependent atelectasis. Pleura: Unremarkable. Thoracic inlet, axillae and chest wall: Unremarkable. Thoracic aorta: Mild arch calcification. Mediastinum: Normal. Heart and pericardium: Normal. Coronary artery calcifications: Mild. Upper abdomen: No significant finding. Multiple renal cysts, the largest measuring at least 5.8 cm on the left, which was incompletely visualized. Bones: No acute osseous finding. Old nonunited right clavicular fracture. Pulmonary arteries: Study quality: Adequate. No pulmonary emboli detected. IMPRESSION: No CT evidence of acute pulmonary embolus. No acute intrathoracic process detected. Reviewed, dictated and finalized at location K. RAIT ARTIST
[2023-04-17 16:21] VITALS: BP 95/50; PULSE 88; RESP 20; TEMP 36.6; O2SAT 100
--- NOTE | 2023-04-17 16:29 | ECG_ITS ---
Measurements Intervals [place] Rate: 60 P: 34 CT: 153 QRS: 26 QRSD: 90 T: 55 QT: 424 QTc: 426 Interpretive Statements SINUS RHYTHM LOW QRS VOLTAGE IN PRECORDIAL LEADS BORDERLINE ECG COMPARED TO ECG 11/01/2022 16:42:46 NO SIGNIFICANT CHANGES Electronically Signed On 04-18-2023 6:35:08 DIRECTOR OF RESOURCE DEVELOPMENT by Igor Mora D.O.
--- NOTE | 2023-04-17 16:31 | ED.GENADULT ---
HPI - General Adult General Chief complaint: Syncope <Mellissa Jimenez October - Last Filed: 04/17/23 16:35> Stated complaint: syncope <Mellissa Jimenez October Last Filed: 04/17/23 16:35> Time Seen by Provider: 04/17/23 22:19 <Mellissa Jimeenz October - Last Filed: 04/17/23 16:35> Source: patient <Elysia Su PA-C - Last Filed: 04/18/23 01:38> Mode of arrival: ambulatory <Elysia Su PA-C - Last Filed: 04/18/23 01:38> Limitations: no limitations <Elysia Su PA-C - Last Filed: 04/18/23 01:38> History of Present Illness HPI narrative: Maile Badillo is a 73 y/o female who presents with reports of having a syncope today. She states that she has passed out a lot and her friend says that sometimes it's because of her b/p or because she hasn't eaten or because of her chronic tremors. Maile states that she got home from taking her dog to the vet, abraham to her bedroom to get her phone and passed out. She doesn't know if she hit her head/ she thinks she is on blood thinners but not sure which ones/ She complains of left knee pain from the fall. Reports feeling her normal self until the syncope today that was around 1530. Denies chest pain / SOB/ headache/vision changes/abdominal pain/ nausea / vomiting /fever/chills No cervical/thoracic/lumbar spinal tenderness with palpation <Mellissa Jimenez October, - Last Filed: 04/17/23 16:35> Maile Badillo is a 73 y/o female who presents with reports of having a syncope today. She states that she has passes out a lot and her friend says that sometimes it's because of her b/p or because she hasn't eaten or because of her chronic tremors. Maile states that she got home from taking her dog to the vet, went to her bedroom to get her phone and passed out. She doesn't know if she hit her head/ she thinks she is on blood thinners but not sure which ones. She complains of left knee pain from the fall. Reports feeling her normal self until the syncope today that was around 1530. No prodromal symptoms Denies chest pain / SOB/ headache/vision changes/abdominal pain/ nausea / vomiting /fever/chills No cervical/thoracic/lumbar spinal tenderness with palpation <Elysia Su PA-C - Last Filed: 04/18/23 01:38> Related Data Home medications: Home Medications Medication Instructions Recorded Confirmed aspirin 81 mg chewable tablet 81 mg PO DAILY 07/07/19 10/31/22 (Niya Chewable Low Dose Aspirin) gabapentin 300 mg capsule 300 mg PO TID 07/07/19 10/31/22 Tylenol 8 Hour 650 mg PO Q8-12H PRN Pain 10/31/22 10/31/22 escitalopram oxalate 20 mg tablet 20 mg PO DAILY 10/31/22 10/31/22 (Lexapro) insulin glargine-yfgn 100 unit/mL 28 unit subcut HS 10/31/22 10/31/22 (3 mL) subcutaneous pen (Semglee (insulin glargine-yfgn) Pen) isosorbide mononitrate 60 mg PO DAILY 10/31/22 10/31/22 losartan 25 mg tablet 25 mg PO DAILY 10/31/22 10/31/22 meclizine 25 mg PO TID 10/31/22 10/31/22 metoprolol succinate 50 mg 25 mg PO WEEKLY 10/31/22 10/31/22 tablet,extended release 24 hr pantoprazole 20 mg tablet,delayed 20 mg PO BID 10/31/22 10/31/22 release <Mellissa Rahman, PATTERN HANGER - Last Filed: 04/17/23 16:35> Allergies/adverse reactions: Allergies Allergy/AdvReac Type Severity Reaction Status Date / Time loratadine Allergy Nausea and Verified 03/15/23 09:33 Vomiting <Mellissa Rahman, PATTERN HANGER - Last Filed: 04/17/23 16:35> Review of Systems Review of Systems: CONSTITUTIONAL: Denies fever EYES: Denies visual changes CARDIOVASCULAR: Denies chest pain, palpitations, or edema. RESPIRATORY: Denies dyspnea. GASTROINTESTINAL: Denies vomiting GENITOURINARY: Denies dysuria MUSCULOSKELETAL: Reports joint pain, and myalgia. NEUROLOGIC: Denies headache, numbness, or weakness. <Elysia Su PA-C - Last Filed: 04/18/23 01:38> All systems reviewed & are unremarkable except as noted in HPI and below <Elysia Su PA-C - Last Filed: 04/18/23 01:38> PMFSH Past Me
[2023-04-17 19:51] VITALS: BP 109/68; PULSE 73; RESP 19; TEMP 36.6; O2SAT 98
[2023-04-17 21:53] VITALS: PULSE 68
[2023-04-17 21:54] VITALS: BP 154/78; PULSE 66; RESP 12; O2SAT 100
[2023-04-17] MEDS: SODIUM CHLORIDE 0.9% IV 500 ML 999 ML IV CONT (22:26)
[2023-04-17 22:27] LABS: Basophils Absolute Auto 0.1 K/mm3 (0.0-0.1); Basophils Percent Auto 0.6 % (0.2-1.2); Eosinophils Percent Auto 0.2 % (0-4.4); Hematocrit 39.9 % (37.0-47.0); Hemoglobin 12.7 g/dL (12.0-15.0); Immature Granulocyte Absolute 0.03 K/mm3 (0.00-0.031); Immature Granulocyte Percent A 0.3 % (0-0.5); Lymphocytes Absolute Auto 0.92 K/mm3 (0.9-3.2); Lymphocytes Percent Auto 9.4 % (18.3-44.2); Mean Corpuscular HGB Conc 31.8 g/dl (32-36); Mean Corpuscular Hemoglobin 30.1 pg (26-34); Mean Corpuscular Volume 94.5 fl (80-100); Mean Platelet Volume 11.3 fl (7.4-10.4); Monocytes Absolute Auto 0.6 K/mm3 (0.1-0.6); Monocytes Percent Auto 6.6 % (2.6-8.5); Neutrophils Absolute Auto 8.1 K/mm3 (1.3-6.7); Neutrophils Percent Auto 82.9 % (45.5-73.1); Platelet Count Result 187 k/mm3 (150-375); Red Blood Count 4.22 M/mm3 (4.2-5.4); Red Cell Distribution Width 13.7 % (11.5-14.5); White Blood Count 9.8 K/mm3 (4.5-10.0)
[2023-04-17 22:37] LABS: Alanine Aminotransferase 28 U/L (6-35); Albumin Level 4.3 g/dL (3.5-5.1); Alkaline Phosphatase 44 U/L (38-126); Anion Gap 9 mmol/L (8-16); Aspartate Amino Transferase 32 U/L (14-36); Bilirubin,Total 1.2 mg/dL (0.2-1.3); Blood Urea Nitrogen 19 mg/dL (7-17); Calcium 8.8 mg/dL (8.4-10.2); Carbon Dioxide 28 mmol/L (22-30); Chloride 103 mmol/L (98-107); Estimated CRCL calculation 37 ml/min; Estimated Glomerular Filt Rate 44; Glucose 149 mg/dL (65-110); Lactic Acid Reflex 1.6 mmol/L (0.7-2.0); Magnesium 2.1 mg/dL (1.6-2.3); Potassium 4.7 mmol/L (3.4-5.0); Sodium 140 mmol/L (137-145)
[2023-04-17 22:48] LABS: Troponin I < 0.012 ng/mL (0.000-0.034)
[2023-04-17 23:01] LABS: D Dimer 1.09 ug/mL (<0.48)
[2023-04-17 23:11] LABS: INR 1.1
[2023-04-17 23:12] LABS: Partial Thromboplastin Time 39.8 SECONDS (22.3-36.8)
[2023-04-18 00:01] VITALS: BP 129/71; PULSE 66; RESP 15; O2SAT 100
== END 2023-04-18 01:39 | disposition home or self-care (01) ==
PROVIDERS: Nurse Practitioner Family; Emergency Provider Physician Assistant; PCP Internal Medicine
DX: R55 Syncope and collapse (principal); I10 Essential (primary) hypertension; E78.5 Hyperlipidemia, unspecified; E11.9 Type 2 diabetes mellitus without complications; E03.9 Hypothyroidism, unspecified; R25.1 Tremor, unspecified; Z86.73 Personal history of transient ischemic attack (TIA), and cerebral infarction without residual deficits; Z90.49 Acquired absence of other specified parts of digestive tract; Z90.711 Acquired absence of uterus with remaining cervical stump; Z79.82 Long term (current) use of aspirin; Z79.4 Long term (current) use of insulin; R94.31 Abnormal electrocardiogram [ECG] [EKG]
CPT/HCPCS: 36415; 70450; 71046; 71275; 73564; 80053; 83605; 83735; 84484; 85025; 85380; 85610; 85730; 93005; 99284; J7040; Q9967